=== PATIENT | male | born 1935 | race Caucasian/White ===

== ENCOUNTER 2024-01-30 03:35 | Inpatient (IN) | payer OTHER, MEDICARE, SELFPAY ==
[2024-01-30] VITALS (58 sets, daily range): BP systolic 76–168; BP diastolic 31–105; PULSE 43–101; RESP 12–29; TEMP 32.4–37.1; O2SAT 84–100; BMI 37.9; BMI 41.9
--- NOTE | 2024-01-30 03:39 | ECG_ITS ---
APPROVED REPORT Exam: Resting ECG HR:46 bpm ECG Measurements Heart Rate 46 AXES TX 313 P 62 QRSd 134 QRS 54 QT 482 T 3 QTc 442 Conclusion SINUS BRADYCARDIA WITH FIRST DEGREE AV BLOCK INTRAVENTRICULAR CONDUCTION DELAY [130+ ms QRS DURATION] POSSIBLE ANTERIOR MYOCARDIAL INFARCTION , OF INDETERMINATE AGE [30 ms Q WAVE IN V3/V4, OR R < 0.2 mV IN V4] Electronically signed by : BURAK CAR, 01/30/2024 15:29:38
--- NOTE | 2024-01-30 03:48 | ED_ITS ---
Discharge Plan Disposition Patient Disposition: Admitted Prescriptions Prescriptions: No Action losartan 50 mg tablet 50 mg PO DAILY furosemide 40 mg tablet 40 mg PO DAILY silver sulfadiazine 1 % cream 1 applic TOPICAL DAILYP PRN (Reason: Skin Condition) ipratropium-albuterol 0.5 mg-3 mg(2.5 mg base)/3 mL solution for nebulization 3 ml INHALATION DAILYP PRN (Reason: Shortness Of Breath Or Wheezing) trazodone 50 mg tablet 50 mg PO HS allopurinol 100 mg tablet 100 mg PO DAILY citalopram 20 mg tablet 20 mg PO DAILY terazosin 2 mg capsule 2 mg PO HS hydrocortisone 1 % cream 1 applic topical DAILYP PRN (Reason: Skin Condition) omeprazole 20 mg capsule,delayed release(DR/EC) 20 mg PO DAILY levothyroxine 200 mcg tablet 200 mcg PO DAILY pravastatin 20 mg tablet 20 mg PO HS carbidopa-levodopa 25-100 mg tablet 1 tab PO TID pramipexole 1.5 mg tablet 1.5 mg PO HS Clinical Impressions Clinical Impression: Septic shock, CED (acute kidney injury), Hypothermia, Respiratory failure with hypoxia and hypercapnia, Heart failure Instructions Patient Instructions: DI for Altered Mental Status Discharge ED Provider: Hua Rondon General Adult HPI General Chief complaint: Shortness of Breath/Dyspnea Stated complaint: AMS Time Seen by Provider: 01/30/24 03:47 History of Present Illness HPI narrative: 88-year-old male with history of obesity, chronic kidney disease, hypertension, Parkinson's, dementia, custodial resident, DNR/DNI, presents with altered mental status. The son, his medical POA, reports that he was told by the custodial yesterday that the patient's kidneys are failing and that he has not been acting normally. He has been less interactive over the last couple of days per his report. The report that we got from the EMS folks are that he had a more sudden change approximately 2 hours prior to arrival. On arrival patient will moan to pain and loud verbal stimuli, is unable to provide any history. EMS reports that his Lasix was recently discontinued, they are unable to provide any other significant history. Related Data Home Medications Medication Instructions Recorded Confirmed allopurinol 100 mg tablet 100 mg PO DAILY 01/30/24 01/30/24 carbidopa 25 mg-levodopa 100 mg 1 tab PO TID 01/30/24 01/30/24 tablet citalopram 20 mg tablet 20 mg PO DAILY 01/30/24 01/30/24 furosemide 40 mg tablet 40 mg PO DAILY 01/30/24 01/30/24 hydrocortisone 1 % topical cream 1 applic topical DAILYP PRN Skin 01/30/24 01/30/24 Condition ipratropium 0.5 mg-albuterol 3 mg 3 ml inhalation DAILYP PRN 01/30/24 01/30/24 (2.5 mg base)/3 mL nebulization Shortness Of Breath Or Wheezing soln levothyroxine 200 mcg tablet 200 mcg PO DAILY 01/30/24 01/30/24 losartan 50 mg tablet 50 mg PO DAILY 01/30/24 01/30/24 omeprazole 20 mg capsule,delayed 20 mg PO DAILY 01/30/24 01/30/24 release pramipexole 1.5 mg tablet 1.5 mg PO HS 01/30/24 01/30/24 pravastatin 20 mg tablet 20 mg PO HS 01/30/24 01/30/24 silver sulfadiazine 1 % topical 1 applic topical DAILYP PRN Skin 01/30/24 01/30/24 cream Condition terazosin 2 mg capsule 2 mg PO HS 01/30/24 01/30/24 trazodone 50 mg tablet 50 mg PO HS 01/30/24 01/30/24 Allergies Allergy/AdvReac Type Severity Reaction Status Date / Time No Known Allergies Allergy Verified 09/02/21 14:14 [facility] Disclaimer: The information contained in this section may have been updated after the patient was seen, as this information can be updated by other users. Medical History (Updated 01/30/24 @ 05:46 by Hua Rondon MD) Closed fracture of neck of right femur Social History Smoking Status: Former smoker alcohol intake: never substance use type: denies use current occupational status: retired Travel in the last 8 weeks: None household members: family housing: house ROS Obtained: Yes unobtainable due to mental status Physical Exam General General appearance: obtunded Head Head exam: atraumatic and normocephalic Eye Eye exam: Present normal appearance and PERRL ENT ENT exam: Present normal oropharynx and normal external ear exam Neck Neck exam: Present normal inspection and full ROM Chest Chest inspection: Present normal inspection and symmetric chest wall rise Respiratory Respiratory exam: Present wheezes and other (Bradypnea) Cardiovascular Cardiovascular exam: Present normal rhythm and bradycardia Abdominal Exam Abdominal exam: Present soft and distention; Absent tenderness or guarding Comment: Small scattered bruising noted to the abdomen Extremities Exam Extremities exam: Present edema (Significant bilateral lower extremity pitting edema) Back Exam Back exam: Present normal inspection Neurological Exam Neurological exam: Present other (Withdraws to pain in all extremities, GCS 9 on arrival, no facial droop noted) Skin Skin exam: Present warm, dry and pallor Lymphatic Lymphatic Findings: no adenopathy Medical Decision Making Medical Records Medical records reviewed: Yes I reviewed the patient's medical records. Pierce Inquiry Pt receiving controlled substance: No Pierce was queried for this patient: No Vital Signs: 01/30/24 03:35 01/30/24 03:38 01/30/24 03:49 Temperature 90.4 F L Temperature Source Rectal Pulse Rate 49 L 74 Pulse Rate [Left] 48 L Respiratory Rate 12 16 18 Blood Pressure 131/97 H 82/31 L Blood Pressure [Right Arm] 83/36 L Blood Pressure Mean 102 43 Blood Pressure Mean [Right Arm] 51 Blood Pressure Source [Right Arm] Automatic Cuff Blood Pressure Position [Right Arm] Supine 02 Sat by Pulse Oximetry 90 L 84 L 86 L Oxygen Delivery Method Nasal Cannula Nasal Cannula BiPAP Oxygen Flow Rate (LPM) 2 01/30/24 03:50 01/30/24 03:54 01/30/24 03:55 Temperature Temperature Source Pulse Rate 50 L 43 L 43 L Pulse Rate [Left] Respiratory Rate 18 19 16 Blood Pressure 83/36 L 84/39 L 79/39 L Blood Pressure [Right Arm] Blood Pressure Mean 48 48 47 Blood Pressure Mean [Right Arm] Blood Pressure Source [Right Arm] Blood Pressure Position [Right Arm] 02 Sat by Pulse Oximetry 96 96 96 Oxygen Delivery Method BiPAP BiPAP BiPAP Oxygen Flow Rate (LPM) 01/30/24 04:00 01/30/24 04:13 01/30/24 04:14 Temperature Temperature Source Pulse Rate 45 L 44 L 45 L Pulse Rate [Left] Respiratory Rate 14 19 17 Blood Pressure 94/72 L 79/33 L 78/35 L Blood Pressure [Right Arm] Blood Pressure Mean 79 48 44 Blood Pressure Mean [Right Arm] Blood Pressure Source [Right Arm] Blood Pressure Position [Right Arm] 02 Sat by Pulse Oximetry 95 97 96 Oxygen Delivery Method BiPAP BiPAP BiPAP Oxygen Flow Rate (LPM) 01/30/24 04:20 01/30/24 04:30 01/30/24 04:35 Temperature Temperature Source Pulse Rate 43 L 45 L 44 L Pulse Rate [Left] Respiratory Rate 16 17 16 Blood Pressure 76/35 L 79/37 L 79/33 L Blood Pressure [Right Arm] Blood Pressure Mean 43 44 42 Blood Pressure Mean [Right Arm] Blood Pressure Source [Right Arm] Blood Pressure Position [Right Arm] 02 Sat by Pulse Oximetry 96 95 96 Oxygen Delivery Method BiPAP BiPAP BiPAP Oxygen Flow Rate (LPM) 01/30/24 04:40 01/30/24 04:51 01/30/24 05:01 Temperature Temperature Source Pulse Rate 48 L 51 L 51 L Pulse Rate [Left] Respiratory Rate 18 16 16 Blood Pressure 99/50 L 103/39 L 103/42 L Blood Pressure [Right Arm] Blood Pressure Mean 61 60 62 Blood Pressure Mean [Right Arm] Blood Pressure Source [Right Arm] Blood Pressure Position [Right Arm] 02 Sat by Pulse Oximetry 98 98 96 Oxygen Delivery Method BiPAP BiPAP BiPAP Oxygen Flow Rate (LPM) 01/30/24 05:10 Temperature Temperature Source Pulse Rate 53 L Pulse Rate [Left] Respiratory Rate 18 Blood Pressure 105/47 L Blood Pressure [Right Arm] Blood Pressure Mean 58 Blood Pressure Mean [Right Arm] Blood Pressure Source [Right Arm] Blood Pressure Position [Right Arm] 02 Sat by Pulse Oximetry 97 Oxygen Delivery Method BiPAP Oxygen Flow Rate (LPM) Lab Data Lab results reviewed: Yes I reviewed the patient's lab results. Lab Results 01/30/24 03:45: WBC 6.7, RBC 2.69 L, Hgb 8.6 L, Hct 30.0 L, MCV 111.3 H, MCH 31.9 H, MCHC 28.7 L, RDW 16.8, Plt Count 126 L, MPV 10.6 H, Neut % (Auto) 84.5 H , Lymph % (Auto) 8.9 L, [place] % (Auto) 3.5, Eos % (Auto) 2.6, Baso % (Auto) 0.5, Neut # (Auto) 5.7, Lymph # (Auto) 0.6 L, [place] # (Auto) 0.2, Eos # (Auto) 0.2, Baso # (Auto) 0.0, Sodium 142, Potassium 5.3 H, Chloride 104, Carbon Dioxide 33 H, Anion Gap 10.3, BUN 100 H, Creatinine 3.00 H, Estimated Creat Clear 28, E stimated GFR 20 L, Est GFR ( Amer) 24 L, Glucose 128 H, Lactate 1.6, Calcium 8.5, Total Bilirubin 0.3, AST 55, ALT 12, Alkaline Phosphatase 161 H, Ammonia 10, Troponin I 0.02, NT-Pro-B Natriuret Pep 2860 H, Total Protein 6.3, Albumin 3.6, Globulin 2.7, Albumin/Globulin Ratio 1.3, TSH 3.07, Thyroxine (T4) 7.8, Salicylates < 1.0 L, Acetaminophen < 10 L, Acetone Level None detected 01/30/24 03:50: Urine Color Yellow, Urine Appearance Clear, Urine pH 5.5, Ur Specific [place] 1.020, Urine Protein Negative, Urine Glucose (UA) Negative, Urine Ketones Negative, Urine Blood Negative, Urine Nitrate Negative, Urine Bilirubin Negative, Urine Urobilinogen 0.2, Ur Leukocyte Esterase Negative, Urine WBC Occasional, Urine Bacteria Trace 01/30/24 03:51: VBG pH 7.20 L, VBG pCO2 74.1 H, VBG pO2 64.1 H, VBG HCO3 28.2, V BG Total CO2 30.5 H, VBG O2 Saturation 87.7 H, VBG Base Excess 0.1, VBG Lactic Acid 2.2 H 01/30/24 04:02: Urine Opiates Screen Negative, Urine Methadone Screen Negative, Ur Barbituates Screen Negative, Ur Phencyclidine Scrn Negative, Ur Amphetamines Screen Negative, U Benzodiazepines Scrn Negative, Urine Cocaine Screen Negative, U Marijuana (THC) Screen Negative 01/30/24 03:45 01/30/24 03:45 Orders (Tests/Meds): ED MEDICATIONS Generic Name Dose Route Start Last Admin Trade Name Freq PRN Reason Stop Dose Admin Norepinephrine/Dextrose 8 mg in 250 mls @ 15 mls/hr 01/30/24 04:22 01/30/24 05:21 Norepinephrine 8mg/250ml-D5w Premix IV 02/29/24 04:21 10 mcg/min .[id number] JLUIS 18.75 mls/hr Titration Protocol 8 MCG/MIN Vancomycin HCl 2,000 mg/ 250 mls @ 125 mls/hr 01/30/24 05:00 01/30/24 05:02 Sodium Chloride IV 01/30/24 06:59 125 mls/hr ONCE ONE Administration Lactated Ringer's 1,000 mls @ 999 mls/hr 01/30/24 05:07 01/30/24 05:21 Lactated Ringer's 1000 Ml Bag IV 01/30/24 06:07 999 mls/hr .Q1H1M ONE Administration Miscellaneous 1 each 01/30/24 04:30 01/30/24 05:23 Vancomycin Consult Request NOTAPPLIC 02/29/24 04:29 1 each CONSULT PHARMACY JLUIS Administration Discontinued Medications Generic Name Dose Route Start Last Admin Trade Name Freq PRN Reason Stop Dose Admin Hydrocortisone Sodium Succinate 100 mg 01/30/24 04:15 01/30/24 04:22 Hydrocortisone Sod Succinate 100mg Vial IV 01/30/24 04:16 100 mg ONCE ONE Administration Lactated Ringer's 1,000 mls @ 999 mls/hr 01/30/24 04:15 01/30/24 04:19 Lactated Ringer's 1000 Ml Bag IV 01/30/24 05:15 999 mls/hr .Q1H1M JLUIS Administration Piperacillin Sod/Tazobactam 100 mls @ 200 mls/hr 01/30/24 04:20 01/30/24 04:29 Sod 4.5 gm/ Sodium Chloride IV 01/30/24 04:49 200 mls/hr ONCE ONE Administration Levothyroxine Sodium 400 mcg 01/30/24 04:16 01/30/24 05:01 Levothyroxine Sodium 100 Mcg Vial IV 01/30/24 04:17 Not Given ONCE ONE Levothyroxine Sodium 200 mcg 01/30/24 04:57 01/30/24 05:08 Levothyroxine Sodium 100 Mcg Vial IV 01/30/24 04:58 200 mcg ONCE ONE Administration ORDERS Category Date Time Status CT head/brain wo con Stat Cat Scan 01/30/24 03:49 Ordered CXR --portable [XR chest portable] Stat Exams 01/30/24 03:49 Taken Acetaminophen Stat Lab 01/30/24 03:45 Completed Acetone, Serum (Rapid) Stat Lab 01/30/24 03:45 Completed Ammonia Stat Lab 01/30/24 03:45 Completed BNP [Brain Natriuretic Peptide] Stat Lab 01/30/24 03:45 Completed CBC w/Auto Diff [Complete Blood Count Auto Diff] Stat Lab 01/30/24 03:45 Completed CMP [Comprehensive Metabolic Panel] Stat Lab 01/30/24 03:45 Completed Cortisol Stat Lab 01/30/24 03:45 Received Lactic Acid Stat Lab 01/30/24 03:45 Completed Salicylate Stat Lab 01/30/24 03:45 Completed T4 (Thyroxine) Stat Lab 01/30/24 03:45 Completed TSH [Thyroid Stimulating Hormone] Stat Lab 01/30/24 03:45 Completed Troponin I Q3H Lab 01/30/24 03:45 Completed Troponin I Q3H Lab 01/30/24 07:00 Ordered UA [Urinalysis and Microscopic] Stat Lab 01/30/24 03:50 Completed UDS [Drug Screen,Urine] Stat Lab 01/30/24 04:02 Completed Blood Culture Stat Micro 01/30/24 03:45 Received VBG [Venous Blood Gas] Stat RT 01/30/24 03:51 Completed ECG Data Tracing #1: I reviewed this ECG and interpreted as documented below: Sinus rhythm with first-degree AV block, bradycardia with rate of 46, first-degree AV block is similar in comparison to prior EKGs. bradycardia appears new ECG initial impression date: 01/30/24 ECG initial impression time: 03:40 Medical Decision Narrative: 88-year-old male with history of Parkinson's, dementia, hypertension, hypothyroidism, heart failure, custodial resident, DNR/DNI, presents with altered mental status and multiple vital sign abnormalities. History was obtained interactive discussion with EMS, patient's son, chart review. On arrival, patient is hypothermic with temp 90 rectally, bradycardic with rates consistently in the 40s, hypotensive with systolics in the 70s, altered mental status with GCS of 9, no unilateral deficits noted, withdrawing in all extremities. Full physical exam performed and significant for marked pitting edema in the lower extremities, mild bruising to the abdomen. I confirmed over the phone with the patient's son, the medical POA, who affirms the patient is DNR/DNI. Differential includes but is not limited to myxedema coma, sepsis, intracranial pathology, multiorgan failure Patient was given 2 L IV fluid bolus immediately for hypotension, he transiently responded but ultimately required initiation of Levophed drip for hypotension. Patient was also initiated on IV levothyroxine and IV hydrocortisone for concern for myxedema coma. Patient initiated on IV vancomycin and IV Zosyn for broad- spectrum antibiotic coverage of presumed sepsis. Workup initiated including CBC CMP UA blood cultures UDS Tylenol salicylates VBG BNP troponin chest x-ray EKG CT head Noncon. Patient placed on the bear hugger for rewarming. We considered intubation, but did not given patient is DNR/DNI. On re-evaluation, patient remains altered, though somewhat improved with improved perfusion. Laboratory workup independently interpreted by me and significant for respiratory acidosis with pH 7.2, pCO2 74, CED with creatinine 3, markedly elevated BUN at 100, up from most recent of 1.4. Mildly elevated lactate. Anemia with hemoglobin 8.6, mildly down from prior, thrombocytopenia, mild hypokalemia with potassium 5.3, negative Tylenol and salicylates. Thyroid studies returned within normal limits Imaging independently interpreted by me and significant for trace bilateral pleural effusions on chest x-ray. CT head shows no acute intracranial bleeding. See radiology read for full review of final results. EKG independently interpreted by me and significant for sinus bradycardia with first-degree AV block as documented above. Given patient history, exam and workup, patient's presentation most likely represents sepsis shock and multiorgan system failure. This includes hypoxic and hypercarbic respiratory failure, acute kidney injury, altered mental status, heart failure. An interactive discussion was had with the hospitalist on-call who accepted the patient for admission. Procedures Risk/Benefits of Procedure(s) Were Explained: Yes Critical Care Critical Care Time Critical Care Time: Yes Attestation: On 01/30/24, the high probability of a clinically significant, sudden or life threatening deterioration of the following system(s) respiratory, cardiac required my full and direct attention, intervention and personal management. The time I documented below is in addition to time spent performing reported procedures but includes the following listed in this critical care notation. Total Time Total Critical Care Time: 75
--- NOTE | 2024-01-30 03:49 | CT_ITS ---
PROCEDURE INFORMATION: Exam: CT Head Without Contrast Exam date and time: 01/30/2024 5:37 AM Age: 88 years old Clinical indication: Altered mental status/memory loss; Confusion or disorientation; Additional info: AMS TECHNIQUE: Imaging protocol: Computed tomography of the head without contrast. Radiation optimization: All CT scans at this facility use at least one of these dose optimization techniques: automated exposure control; mA and/or kV adjustment per patient size (includes targeted exams where dose is matched to clinical indication); or iterative reconstruction. COMPARISON: CT HEAD/BRAIN WO CON 10/10/2023 4:37 PM FINDINGS: Brain: There is diffuse prominence of the cerebral sulci, cisterns, and ventricles consistent with atrophy. No intra or extra-axial fluid collections are noted. No mass or mass effect is seen. Periventricular white matter hypoattenuation is seen consistent with chronic small vessel disease. Cerebral ventricles: No ventriculomegaly. Paranasal sinuses: Visualized sinuses are unremarkable. No fluid levels. Mastoid air cells: Visualized mastoid air cells are well aerated. Bones/joints: Unremarkable. No acute fracture. Soft tissues: Unremarkable. IMPRESSION: No acute process noted.
--- NOTE | 2024-01-30 03:49 | XR_ITS ---
PROCEDURE INFORMATION: Exam: XR Chest Exam date and time: 01/30/2024 4:18 AM Age: 88 years old Clinical indication: Apnea and shortness of breath; Additional info: AMS, apnea TECHNIQUE: Imaging protocol: Radiologic exam of the chest. Views: 1 view. COMPARISON: CT ANGIO CHEST PE PROTOCOL 05/30/2023 3:44 PM FINDINGS: Lungs: Left basilar atelectasis versus airspace disease. Pleural spaces: Probable left-sided pleural effusion. Heart/Mediastinum: Cardiomegaly. Bones/joints: Unremarkable. IMPRESSION: Cardiomegaly. Left basilar atelectasis versus airspace disease. Probable left-sided pleural effusion.
[2024-01-30 04:01] LABS: VBG Base Excess 0.1 mmol/L (-2.4-2.3); VBG HCO3 28.2 mmol/L (23-30); VBG Oxygen Saturation 87.7 % (50-70); VBG PCO2 74.1 mmol/L (35-51); VBG PO2 64.1 mmol/L (28-40); VBG Total CO2 30.5 mmol/L (23-27)
[2024-01-30 04:04] LABS: Lactate Venous 2.2 mmol/L (0.4-2.0)
--- NOTE | 2024-01-30 04:05 | PC.NURSE ---
Placed era hugger on patient.
[2024-01-30 04:06] LABS: Acetone, Serum (Rapid) None Detected (None Detect)
[2024-01-30 04:09] LABS: Chloride 104 mmol/L (98-107); Potassium 5.3 mmoL/L (3.5-5.1); Sodium 142 mmol/L (136-145)
[2024-01-30 04:10] LABS: Basophils % 0.5 % (0.1-2.0); Eosinophils # 0.2 K/mm3 (0.0-0.4); Eosinophils % 2.6 % (0.1-12.0); Hemoglobin 8.6 g/dL (14.1-18.0); Lymphocytes # 0.6 K/mm3 (0.7-4.5); Lymphocytes % 8.9 % (10-50); Mean Corpuscular HGB Conc 28.7 g/dL (31.8-35.4); Mean Corpuscular Hemoglobin 31.9 pg (27.0-31.2); Mean Corpuscular Volume 111.3 fl (80-94); Mean Platelet Volume 10.6 fl (7.4-10.4); Monocytes # 0.2 K/mm3 (0.1-1.0); Monocytes % 3.5 % (1.7-9.3); Neutrophils # 5.7 K/mm3 (1.8-7.8); Neutrophils % 84.5 % (37.0-80.0); Platelet Count 126 K/mm3 (142-424); Red Blood Count 2.69 M/mm3 (4.60-6.20); Red Cell Distribution Width 16.8 % (11.5-17.5); White Blood Count 6.7 K/mm3 (4.8-10.8)
--- NOTE | 2024-01-30 04:10 | PC.NURSE ---
[id number]. Pt is srikanth (HR 48) Hypotensive (83/36) Hypothermic (90.4 rectal) , Scattered bruising on abdomen and upper extremities, responds only to painful stimuli.
[2024-01-30 04:11] LABS: Alanine Aminotransferase 12 U/L (12-78); Alkaline Phosphatase 161 U/L (38-126); Ammonia 10 umol/L (9-30); Anion Gap 10.3 mEq/L (5-15); Aspartate Amino Transferase 55 U/L (17-59); Bilirubin,Total 0.3 mg/dl (0.2-1.3); Carbon Dioxide 33 mmol/L (22.0-30.0); Creatinine Clearance Estimated 28 mL/min (50-200); Estimated Glomerular Filt Rate 20 ml/min (>60); GFR (African American) 24 ML/MIN (>60); Lactic Acid 1.6 mmol/L (0.7-2.1)
[2024-01-30 04:11] LABS: Microscopic, Urine URINE MICROSCOPIC (MICROSCOPIC)
[2024-01-30 04:12] LABS: Albumin Level 3.6 g/dl (3.5-5.0); Albumin/Globulin Ratio 1.3 (1.1-1.8); Calcium 8.5 mg/dl (8.4-10.2); Globulin 2.7 g/dL (1.3-3.2); Glucose 128 mg/dl (74-100); Total Protein,Serum 6.3 g/dl (6.3-8.2)
[2024-01-30 04:15] LABS: Acetaminophen < 10 ug/ml (10-30); Salicylate < 1.0 mg/dL (2.0-20.0)
[2024-01-30 04:16] LABS: Blood Urea Nitrogen 100 mg/dl (9-20)
[2024-01-30] MEDS: LACTATED RINGERS 1000ML 1,000 ML 999 ML IV ×2 (04:19→05:21)
[2024-01-30 04:22] LABS: NT Pro Brain Natriuretic Pep. 2860 pg/mL (0-450)
[2024-01-30] MEDS: HYDROCORTISONE SOD SUCCINATE 100MG VIAL 100 MG IV (04:22)
[2024-01-30 04:23] LABS: Appearance,Urine CLEAR (Clear); Bilirubin,Urine Negative (Negative); Blood, Urine Negative (Negative); Color,Urine YELLOW (Yellow); Glucose,Urine (UA) Negative (Negative); Ketones,Urine Negative (Negative); Leukocyte Esterase,Urine Negative (Negative); Nitrate,Urine Negative (Negative); PH,Urine 5.5 (5.0-8.5); Protein,Urine Negative (Negative); Urobilinogen,Urine 0.2 EU/dl (0.2)
[2024-01-30 04:25] LABS: Troponin I 0.02 ng/ml (0.00-0.034)
--- NOTE | 2024-01-30 04:26 | PC.NURSE ---
CONTACTED EDVIN BECKMAND FOR QUESTIONS RE: IV LEVOTHYROXINE
[2024-01-30 04:29] LABS: T4 (Thyroxine) 7.8 ug/dl (5.53-11.0)
[2024-01-30] MEDS: PIPERACILLIN/TAZO 4.5 GM in 0.9 % SODIUM CHLORIDE 100 ML IV (04:29)
[2024-01-30] MEDS: NOREPINEPHRINE BITARTRATE/D5W 8 MG/250 ML PLAST..BAG 15 MG IV ×2 (04:30→16:23)
[2024-01-30 04:34] LABS: Benzodiazepines Screen,Urine Negative ng/ml (<200)
[2024-01-30 04:35] LABS: Amphetamine/Metha Screen,Urine Negative ng/ml (<1000)
[2024-01-30 04:36] LABS: Barbiturates Screen,Urine Negative ng/ml (<200); Cannabinoid Screen,Urine Negative ng/ml (<50)
[2024-01-30 04:37] LABS: Cocaine Screen,Urine Negative ng/ml (<300); Methadone Screen,Urine Negative ng/ml (<300)
[2024-01-30 04:38] LABS: Opiate Screen,Urine Negative ng/ml (<300)
[2024-01-30 04:39] LABS: Phencyclidine Screen,Urine Negative ng/ml (<25)
[2024-01-30 04:43] LABS: Thyroid Stimulating Hormone 3.07 uIU/mL (0.465-4.68)
--- NOTE | 2024-01-30 04:55 | PC.NURSE ---
Pt is admitted, will be boarding in ED
[2024-01-30 05:00] LABS: Bacteria,Urine Trace /lpf; WBC,Urine Occasional #/hpf (0-3)
[2024-01-30] MEDS: VANCOMYCIN HCL 2,000 MG in 0.9 % SODIUM CHLORIDE 250 ML 125 MG IV (05:02)
[2024-01-30] MEDS: LEVOTHYROXINE SODIUM 100 MCG VIAL 200 MCG IV (05:08)
[2024-01-30] MEDS: VANCOMYCIN CONSULT REQUEST 1 EACH NOTAPPLIC (05:23)
--- NOTE | 2024-01-30 05:23 | PC.NURSE ---
Family at bedside
--- NOTE | 2024-01-30 06:02 | PC.NURSE ---
Pt taken to CT, placed in hospital bed after scan, back in room , family at bedside no needs at this time.
--- NOTE | 2024-01-30 06:31 | PC.NURSE ---
Family going home at this time
--- NOTE | 2024-01-30 06:42 | PC.NURSE ---
Admissions notified for admission
--- NOTE | 2024-01-30 07:26 | P.HP_ITS ---
History of Present Illness *Admission Date: 01/30/24 *Reason for visit:: weakness, altered mental status *History of present illness: Mr. Haider is an 88-year-old male with history of obesity, CKD, hypertension, Parkinson's. He is a intermediate resident who presented with altered mental status. There was concern for worsening kidney dysfunction at his intermediate and the patient was not acting normally. He was brought to the ER via EMS for further evaluation. Patient has reportedly been less active over the past couple days. Unable to obtain history from patient. Obtained history per this note from chart and ER documentation. Son was at bedside on presentation unable to give history of patient's decline over the past few days. Reportedly had a more acute change a few hours prior to arriving at the ER. Was moaning to loud verbal stimuli and would respond with eye-opening to physical stimuli. Frankly altered however with GCS of 7. Initial workup in the ER showed patient was hypothermic, hypotensive, and renal failure with BUN of 100 and creatinine of 3. Had hypercarbia. Given patient's CODE STATUS of DNR/DNI, was initiated on BiPAP, broad-spectrum antibiotics, Levophed, and Dewayne hugger for slow rewarming. On my evaluation, patient has some improved spontaneous movement. Temperature is improving to 92. Levophed at 8 with MAP greater than 65. Pulling volumes of 4-500 on BiPAP. [facility] Disclaimer: The information contained in this section may have been updated after the patient was seen, as this information can be updated by other users. Medical History (Updated 01/30/24 @ 17:34 by Juli Alcantara RN) Hypothyroid Depression Anxiety COPD (chronic obstructive pulmonary disease) GERD (gastroesophageal reflux disease) Parkinsons disease Dementia Anemia CKD (chronic kidney disease) HTN (hypertension) CHF (congestive heart failure) Closed fracture of neck of right femur Family History (Updated 01/30/24 @ 17:34 by Juli Alcantara RN) Other Cancer Social History (Updated 01/30/24 @ 17:34 by Juli Alcantara RN) Smoking Status: Former smoker alcohol intake: never substance use type: denies use current occupational status: retired Travel in the last 8 weeks: None household members: family and other housing: house lives independently: No marital status: intermediate: Yes Review of Systems Review of Systems Review of systems:: unable to obtain Meds Home Medications and Allergies Home Medications Medication Instructions Recorded Confirmed Type acetaminophen 325 mg tablet 325 mg PO QID 01/30/24 01/30/24 History allopurinol 100 mg tablet 100 mg PO DAILY 01/30/24 01/30/24 History aspirin 81 mg tablet,delayed 81 mg PO DAILY 01/30/24 01/30/24 History release calcium carbonate 250 mg-vitamin 1 tab PO BID 01/30/24 01/30/24 History D3 3.125 mcg (125 unit) tablet (Oyster Shell Calcium-Vitamin D3) carbidopa 25 mg-levodopa 100 mg 1 tab PO TID 01/30/24 01/30/24 History tablet cholecalciferol (vitamin D3) 25 25 mcg PO DAILY 01/30/24 01/30/24 History mcg (1,000 unit) capsule citalopram 20 mg tablet 20 mg PO DAILY 01/30/24 01/30/24 History furosemide 40 mg tablet 40 mg PO DAILY 01/30/24 01/30/24 History hydrocortisone 1 % topical cream 1 applic topical DAILYP PRN Skin 01/30/24 01/30/24 History Condition ipratropium 0.5 mg-albuterol 3 mg 3 ml inhalation DAILYP PRN 01/30/24 01/30/24 History (2.5 mg base)/3 mL nebulization Shortness Of Breath Or Wheezing soln levothyroxine 200 mcg tablet 200 mcg PO DAILY 01/30/24 01/30/24 History levothyroxine 25 mcg tablet 25 mcg PO DAILY 01/30/24 01/30/24 History losartan 50 mg tablet 50 mg PO BID 01/30/24 01/30/24 History multivitamin-ferrous 1 tab PO DAILY 01/30/24 01/30/24 History fumarate-folic acid 18 mg-400 mcg tablet (Multi-Day with Iron) omega 3-dha 200 mg-epa 300 mg-fish 2 cap PO DAILY 01/30/24 01/30/24 History oil 1,000 mg capsule omeprazole 20 mg capsule,delayed 20 mg PO DAILY 01/30/24 01/30/24 History release polyethylene glycol 3350 17 gram 17 g PO DAILY 01/30/24 01/30/24 History oral powder packet (Miralax) polysaccharide iron complex 150 mg 150 mg PO DAILY 01/30/24 01/30/24 History iron capsule (Ferrex) pramipexole 1.5 mg tablet 1.5 mg PO TID 01/30/24 01/30/24 History pravastatin 20 mg tablet 20 mg PO TUTH 01/30/24 01/30/24 History silver sulfadiazine 1 % topical 1 applic topical DAILYP PRN Skin 01/30/24 01/30/24 History cream Condition terazosin 2 mg capsule 2 mg PO HS 01/30/24 01/30/24 History trazodone 50 mg tablet 50 mg PO HS 01/30/24 01/30/24 History New Prescriptions to Start Prescriptions: Allergies Allergy/AdvReac Type Severity Reaction Status Date / Time No Known Allergies Allergy Verified 09/02/21 14:14 Exam Data for Last 24 hours Vital signs and Labs for Last 24 Hours: Temp Pulse Resp BP Pulse Ox O2 Del Method O2 Flow Rate 90.4 F L 57 L 16 126/39 L 96 BiPAP 2 01/30/24 06:10 01/30/24 06:50 01/30/24 06:50 01/30/24 06:50 01/30/24 06:50 01/30/24 06:50 01/30/24 03:35 FiO2 45 01/30/24 03:59 Laboratory Results - last 24 hr 01/30/24 03:45: WBC 6.7, RBC 2.69 L, Hgb 8.6 L, Hct 30.0 L, MCV 111.3 H, MCH 31.9 H, MCHC 28.7 L, RDW 16.8, Plt Count 126 L, MPV 10.6 H, Neut % (Auto) 84.5 H , Lymph % (Auto) 8.9 L, [place] % (Auto) 3.5, Eos % (Auto) 2.6, Baso % (Auto) 0.5, Neut # (Auto) 5.7, Lymph # (Auto) 0.6 L, [place] # (Auto) 0.2, Eos # (Auto) 0.2, Baso # (Auto) 0.0, Sodium 142, Potassium 5.3 H, Chloride 104, Carbon Dioxide 33 H, Anion Gap 10.3, BUN 100 H, Creatinine 3.00 H, Estimated Creat Clear 28, Estimated GFR 20 L, Est GFR ( Amer) 24 L, Glucose 128 H, Lactate 1.6, Maurice cium 8.5, Total Bilirubin 0.3, AST 55, ALT 12, Alkaline Phosphatase 161 H, Ammonia 10, Troponin I 0.02, NT-Pro-B Natriuret Pep 2860 H, Total Protein 6.3, Albumin 3.6, Globulin 2.7, Albumin/Globulin Ratio 1.3, TSH 3.07, Thyroxine (T4) 7.8, Salicylates < 1.0 L, Acetaminophen < 10 L, Acetone Level None detected 01/30/24 03:50: Urine Color Yellow, Urine Appearance Clear, Urine pH 5.5, Ur Specific [place] 1.020, Urine Protein Negative, Urine Glucose (UA) Negative, Urine Ketones Negative, Urine Blood Negative, Urine Nitrate Negative, Urine Bilirubin Negative, Urine Urobilinogen 0.2, Ur Leukocyte Esterase Negative, Urine WBC Occasional, Urine Bacteria Trace 01/30/24 03:51: VBG pH 7.20 L, VBG pCO2 74.1 H, VBG pO2 64.1 H, VBG HCO3 28.2, VBG Total CO2 30.5 H, VBG O2 Saturation 87.7 H, VBG Base Excess 0.1, VBG Lactic Acid 2.2 H 01/30/24 04:02: Urine Opiates Screen Negative, Urine Methadone Screen Negative, Ur Barbituates Screen Negative, Ur Phencyclidine Scrn Negative, Ur Amphetamines Screen Negative, U Benzodiazepines Scrn Negative, Urine Cocaine Screen Negative, U Marijuana (THC) Screen Negative I & O for Last 24 hours: Intake & Output 01/27/24 01/28/24 01/29/24 01/30/24 23:59 23:59 23:59 23:59 Intake Total .. Balance Weight 116.573 kg Constitutional Constitutional: moderate distress, obese, chronically ill appearing and somnolent *Routine HEENT Exam Head: Present normocephalic and atraumatic Eye: Present EOMI and PERRL ENT: Present mucous membranes moist *Routine Neck Exam Neck: Present supple; Absent JVD Routine Chest/Breast/Axilla Exam Chest wall: Absent tenderness *Routine Respiratory Exam Respiratory: Present accessory muscle use, respiratory distress and diminished air movement; Absent rhonchi, wheezes or crackles *Routine Cardiovascular Exam Cardiovascular: Present RRR, Normal S1 and Normal S2; Absent murmur *Routine Abdominal Exam Abdominal: Present soft, normoactive bowel sounds and distended; Absent tenderness *Routine Rectal Exam Rectal:: deferred *Routine Genitalia Exam Genitalia:: normal male *Routine Extremities Exam Extremities: Present edema (1+ of bilateral extremity); Absent cyanosis or clubbing Comments: Healing wounds bilateral lower extremities on shins. *Routine Skin Exam Skin: Present wounds; Absent cyanosis or erythema *Routine Neurological Exam Neurological: Present altered mental status Comments: Spontaneous movement, tremor Assessment and Plan *Assessment and plan (1) Septic shock: Status: Acute Category: Medical Code(s): A41.9 - Sepsis, unspecified organism; R65.21 - Severe sepsis with septic shock (2) Hypothermia: Status: Acute Category: Medical Code(s): T68.XXXA - Hypothermia, initial encounter (3) Respiratory failure with hypoxia and hypercapnia: Status: Acute Category: Medical Code(s): J96.91 - Respiratory failure, unspecified with hypoxia; J96.92 - Respiratory failure, unspecified with hypercapnia (4) Class 2 obesity: Status: Acute Category: Medical Code(s): E66.9 - Obesity, unspecified (5) CED (acute kidney injury): Status: Acute Category: Medical Code(s): N17.9 - Acute kidney failure, unspecified (6) Parkinsons disease: Status: Chronic Category: Medical Code(s): G20 - Parkinson's disease (7) Heart failure: Status: Acute Category: Medical Code(s): I50.9 - Heart failure, unspecified (8) Hypothyroid: Status: Chronic Category: Medical Code(s): E03.9 - Hypothyroidism, unspecified Plan 88-year-old male with history of Parkinson's who resides at a intermediate. Presented in septic shock with acute hypercapnic respiratory failure, hypothermia, no focal source for infection at this time but presumed infectious with UTI versus pneumonia versus abdominal infection. Presentation could also be likely to hypercapnia from confusion with his elevated BUN leading to hypothermia and hypotension. Discussed case with ER physician, request admission for ICU level care. Agree with admission. Medicine admitted for further management. Continue on BiPAP at this time, seeing slow improvement. Pulmonology consulted to assist with management of sepsis and BiPAP. Shock - Differential includes cardiogenic shock, septic shock, hypovolemic shock, obstructive shock. Will obtain echocardiogram to evaluate heart function. Lower extremity duplex to evaluate DVT. Continue BiPAP pending improvement in hypercapnia. Continue Levophed for MAP greater than 65. -Continue broad-spectrum antibiotics with vancomycin and cefepime. -White cell count normal at 6.7, repeat CBC, CMP, magnesium ordered for the morning. - Echocardiogram obtained, preliminary read shows preserved EF -Levophed weaned to 8 at this time for MAP greater than 65. Wean as tolerated -Body temperature has improved with Dewayne hugger, will remove when reaches normal temperature of 98 degrees. -Necessitates ICU level of care. -Discussed case with pulmonology, patient's presentation concerning for sepsis along with other multiple etiologies of shock. Low concern for adverse effect of his Parkinson's meds as he is not clinically in neuroleptic malignant syndrome. -Continue noninvasive ventilation currently with BiPAP at 12/, RR-22 and FiO2 0f 40%. Follow with repeat ABG -DuoNebs every 4 hours on a scheduled basis -Renally dose medications. MAP goal greater than 65. -CK obtained, 111, not elevated. Hypothyroid: TSH 1.4. Continue levothyroxine IV. Dose adjustment to 150 mcg d aily. Hypertension: Holding home regimen given hypotension Parkinson's: Continue carbidopa/levodopa and pramipexole 3 times a day per tube Pantoprazole 40 mg IV nightly for GERD Continue further goals of care discussion with family/son (POA) DNR/DNI NPO Lovenox 40 mg subcu daily
[2024-01-30 07:41] LABS: ABG Base Excess -1.6 mmol/L (-2.4-2.3); ABG Oxygen Saturation 93 % (90-100); ABG PO2 77.3 mmhg (80-100); ABG TCO2 29.4 mmhg (23-27)
[2024-01-30 07:47] LABS: Allen's Test Acceptable; Oxygen 45% %; Pressure Support 18/8; Source Left Radial
[2024-01-30 07:49] LABS: ABG PCO2 77.4 mmhg (35.0-45.0); ABG PH 7.16 mmol/L (7.35-7.45)
[2024-01-30 08:01] LABS: Troponin I 0.03 ng/ml (0.00-0.034)
[2024-01-30 08:02] LABS: Reflex Lactic Add Lactic Reflex
--- NOTE | 2024-01-30 08:02 | PC.NURSE ---
ROUNDED ON PT, TOLERATING BI-PAP. NO NEEDS AT THIS TIME
--- NOTE | 2024-01-30 08:17 | SW/DCPLANNER ---
Addendum entered by [facility] 02/05/24 12:40: The plan for this patient is to return to [facility] w/ Hospice Care today. Netta craft/ [facility], Mely craft/ [facility] Fidelia[facility] and patient's family are agreeable to this plan. Addendum entered by Ivette May 02/05/24 09:04: Updated patient information has been faxed to [facility]/ Kerry Mike. Addendum entered by Ivette May 02/01/24 15:38: Patient has now been admitted under Hospice inpatient. Addendum entered by [facility] 02/01/24 14:50: Per family/MD request patient information has been faxed to [facility]. Heide craft/ [facility] Cee is onsite to evaluate patient and speak w/ family. Original Note: This patient currently resides at [facility] on Memory Care Unit. I will continue to follow up luana/ Netta from [facility]. Discharge date is unknown at this time.
--- NOTE | 2024-01-30 08:31 | PC.NURSE ---
DR PATTERSON AT BEDSIDE
[2024-01-30 08:38] LABS: Lactic Acid Follow Up (RFLX 1) 1.1 mmol/L (0.7-2.1)
--- NOTE | 2024-01-30 08:40 | CA_ITS ---
APPROVED REPORT EXAM: Comprehensive 2D, Doppler, and color-flow Echocardiogram Pole Framer: Noni Ferreira RVT Ht: 5 ft 9 in Wt: 257lbs BSA: 2.30 BP: 126/39 mmHg Indications: HTN,SOA,SEPTIC SHOCK TDS-PT ON BIPAP AND FLAT ON HIS BACK BEST IMAGES POSSIBLE M-Mode Dimensions RVDd 4.73 cm (0.9-2.6) LA Diam 4.05 cm (1.9-4.0) LVDd 4.99 cm (3.5-5.7) LVDs 3.24 cm (3.5-5.7) IVSd 0.98 cm (0.6-1.1) PWd 0.67 cm (0.6-1.1) EF (Teich) 64.10% FS 35.10% EDV (Teich) 117.70 mL TAPSE 2.41 (<1.7) ESV (Teich) 42.20 mL LV Diastology E Decel Time 233 (160-240 msec) E/A Ratio 1.6 Aortic Valve AO Peak GR. 9.00 mmHg Mitral Valve MV E Max Jorge. 101.0 (40-130 cm/s) MV A Velocity 64.0 (40-130 cm/s) E/A Ratio 1.58 MV PHT 68.0 ms Pulmonary Valve PV Peak Velocity 76.0 (50-150 cm/s) Tricuspid Valve TR P. Velocity 305.00 cm/s RAP Estimate 10.00 mmHg RVSP 47.30 mmHg Left Ventricle The left ventricle is normal size. Left ventricular systolic function is mild to moderately decreased. There is increased LV wall thickness. The septum appears asynchronous. There is septal flattening, consistent with RV pressure/volume overload. Diastolic function is indeterminate. LVEF is 40%. Right Ventricle Right ventricle is moderately dilated. Right ventricle is moderately hypokinetic. Atria The left atrium size is normal. The right atrium size is normal. There is no Doppler evidence of interatrial shunt. Aortic Valve The aortic valve is mildly thickened. There is no aortic valvular stenosis. No aortic regurgitation is present. Mitral Valve The mitral valve is mildly thickened. No evidence of mitral valve stenosis. Trace mitral regurgitation. Tricuspid Valve The tricuspid valve leaflets are thin and pliable. Moderate tricuspid regurgitation. RVSP is 40 mmHg + RA pressure Pulmonic Valve The pulmonary valve is grossly normal in structure. Trace pulmonic regurgitation. Great Vessels The aortic root is normal in size. The ascending aorta is not well-visualized. The IVC is not well-visualized. Pericardium There is no pericardial effusion. A pleural effusion is present. Other Information Study Quality: Technically Difficult Conclusion Technically difficult study due to poor acoustic windows. Mild to moderate reduction in LV systolic function (LVEF 40%). Moderate RV dilation with moderate reduction in RV function. The septum appears asynchronous. There is septal flattening, consistent with RV pressure/volume overload. Moderate TR Elevated RVSP 40 mmHg + RA pressure. Electronically signed by : Jana Salas MD 02/04/2024 10:42:04
[2024-01-30] MEDS: ENOXAPARIN 40MG/0.4ML SYRINGE 40 MG SQ (09:05)
[2024-01-30] MEDS: CEFEPIME HCL 2 GM in 0.9 % SODIUM CHLORIDE 100 ML IV ×2 (09:06→20:42)
[2024-01-30 09:12] LABS: Coronavirus 19, PCR Not Detected (NotDetected); Influenza A, PCR Not Detected (NotDetected); Influenza B, PCR Not Detected (NotDetected)
--- NOTE | 2024-01-30 09:25 | P.CONPHA_ITS ---
Pharmacy Consult Date: 01/30/24 Time: 09:25 Referring provider: DR. PATTERSON Reason for Consult:: VANCOMYCIN DOSING Allergies Allergy/AdvReac Type Severity Reaction Status Date / Time No Known Allergies Allergy Verified 09/02/21 14:14 Home Medications Medication Instructions Recorded Confirmed Type allopurinol 100 mg tablet 100 mg PO DAILY 01/30/24 01/30/24 History carbidopa 25 mg-levodopa 100 mg 1 tab PO TID 01/30/24 01/30/24 History tablet citalopram 20 mg tablet 20 mg PO DAILY 01/30/24 01/30/24 History furosemide 40 mg tablet 40 mg PO DAILY 01/30/24 01/30/24 History hydrocortisone 1 % topical cream 1 applic topical DAILYP PRN Skin 01/30/24 01/30/24 History Condition ipratropium 0.5 mg-albuterol 3 mg 3 ml inhalation DAILYP PRN 01/30/24 01/30/24 History (2.5 mg base)/3 mL nebulization Shortness Of Breath Or Wheezing soln levothyroxine 200 mcg tablet 200 mcg PO DAILY 01/30/24 01/30/24 History losartan 50 mg tablet 50 mg PO DAILY 01/30/24 01/30/24 History omeprazole 20 mg capsule,delayed 20 mg PO DAILY 01/30/24 01/30/24 History release pramipexole 1.5 mg tablet 1.5 mg PO HS 01/30/24 01/30/24 History pravastatin 20 mg tablet 20 mg PO HS 01/30/24 01/30/24 History silver sulfadiazine 1 % topical 1 applic topical DAILYP PRN Skin 01/30/24 01/30/24 History cream Condition terazosin 2 mg capsule 2 mg PO HS 01/30/24 01/30/24 History trazodone 50 mg tablet 50 mg PO HS 01/30/24 01/30/24 History New Prescriptions to Start Prescriptions: Height: 1.75 m Weight: 116.573 kg Laboratory Results:: Laboratory Results - last 24 hr 01/30/24 03:45: WBC 6.7, RBC 2.69 L, Hgb 8.6 L, Hct 30.0 L, MCV 111.3 H, MCH 31.9 H, MCHC 28.7 L, RDW 16.8, Plt Count 126 L, MPV 10.6 H, Neut % (Auto) 84.5 H , Lymph % (Auto) 8.9 L, [place] % (Auto) 3.5, Eos % (Auto) 2.6, Baso % (Auto) 0.5, Neut # (Auto) 5.7, Lymph # (Auto) 0.6 L, [place] # (Auto) 0.2, Eos # (Auto) 0.2, Baso # (Auto) 0.0, Sodium 142, Potassium 5.3 H, Chloride 104, Carbon Dioxide 33 H, Anion Gap 10.3, BUN 100 H, Creatinine 3.00 H, Estimated Creat Clear 28, Estimated GFR 20 L, Est GFR ( Amer) 24 L, Glucose 128 H, Lactate 1.6, Calcium 8.5, Total Bilirubin 0.3, AST 55, ALT 12, Alkaline Phosphatase 161 H, Ammonia 10, Troponin I 0.02, NT-Pro-B Natriuret Pep 2860 H, Total Protein 6.3, Albumin 3.6, Globulin 2.7, Albumin/Globulin Ratio 1.3, TSH 3.07, Thyroxine (T4) 7.8, Salicylates < 1.0 L, Acetaminophen < 10 L, Acetone Level None detected 01/30/24 03:50: Urine Color Yellow, Urine Appearance Clear, Urine pH 5.5, Ur Specific [place] 1.020, Urine Protein Negative, Urine Glucose (UA) Negative, Urine Ketones Negative, Urine Blood Negative, Urine Nitrate Negative, Urine Bilirubin Negative, Urine Urobilinogen 0.2, Ur Leukocyte Esterase Negative, Urine WBC Occasional, Urine Bacteria Trace 01/30/24 03:51: VBG pH 7.20 L, VBG pCO2 74.1 H, VBG pO2 64.1 H, VBG HCO3 28.2, VBG Total CO2 30.5 H, VBG O2 Saturation 87.7 H, VBG Base Excess 0.1, VBG Lactic Acid 2.2 H 01/30/24 04:02: Urine Opiates Screen Negative, Urine Methadone Screen Negative, Ur Barbituates Screen Negative, Ur Phencyclidine Scrn Negative, Ur Amphetamines Screen Negative, U Benzodiazepines Scrn Negative, Urine Cocaine Screen Negative, U Marijuana (THC) Screen Negative 01/30/24 07:17: Specimen Source Left radial, O2 % 45%, ABG pH 7.16 L*, ABG pCO2 77.4 H, ABG pO2 77.3 L, ABG HCO3 27.0 H, ABG Total CO2 29.4 H, ABG O2 Saturation 93, ABG Base Excess -1.6, Elver Test Acceptable 01/30/24 07:30: Troponin I 0.03 01/30/24 08:17: Lactate 1.1 Medical History: Medical History (Updated 01/30/24 @ 05:46 by Hua Rondon MD) Closed fracture of neck of right femur Assessment and Plan Assessment and plan all Dx Assessment and Plan for all problems:: Pharmacokinetic dosing service Objective: Patient: Floor: Age: 88 yo Serum creatinine: 3 mg/dL Height: 69.0 Inches Weight (kg): 116.6 Assessment: IBW (kg): 70.70 Dosing wt(kg): 116.6 Estimated Creatinine clearance (ml/min): 16.7 CRCL method: Cockcroft and Gault using ibw(default). Drug selected: Vancomycin Loading dose (mg): 0 Vd (liters): 93.3 (factor used: 0.8 L/kg) Onofre (hr-1): 0.018 Half life (hrs): 38.51 Recommended dose: 2000 mg Interval: 48 hrs Infusion time (hrs): 2.0 Predicted peak (mcg/mL): 36.4 Predicted trough (mcg/mL): 15.90 Total body weight is being used for vancomycin dosing. Recommendations: Give Vancomycin 2000 mg q 48 hrs with an expected Cpeak of 36.4 mcg/ml and an expected Ctrough of 15.90 mcg/ml. NEXT DOSE IS SCHEDULED FOR 02/01/24 AT 0700. ----Vanco only - ignore for aminoglycosides----- CLvanco= 1.68 L/hr AUC 0-24 /MARGARITA Data: MARGARITA 0.5 mcg/mL: AUC/MARGARITA: 1190.5 MARGARITA 1.0 mcg/mL: AUC/MARGARITA: 595.2 --------- MARGARITA 1.5 mcg/mL: AUC/MARGARITA: 396.8 MARGARITA 2.0 mcg/mL: AUC/MARGARITA: 297.6 Renal dosing of other antibiotics (review renal dosing of other medications and list guidelines here): Thank you for the consult, will continue to follow. Signature:
--- NOTE | 2024-01-30 09:51 | PC.NURSE ---
NG tube placement attempted 3x by 2 different nurses. unsuccessful.
--- NOTE | 2024-01-30 10:13 | P.CONS_ITS ---
History of Present Illness History of present illness: Mr. Haider is a 88-year-old care home resident presented to the ER with worsening respiratory suspect external altered mentation and pulmonary was called for further evaluation and management. His other complaints include hypothyroidism on levothyroxine 225mcg daily Parkinson's on Levodopa-carbidopa and pramiprexole, hypertension and CHF. He is also nebulization therapies on as-needed basis. [facility] Disclaimer: The information contained in this section may have been updated after the patient was seen, as this information can be updated by other users. Medical History Closed fracture of neck of right femur Social History Smoking Status: Former smoker alcohol intake: never substance use type: denies use current occupational status: retired Travel in the last 8 weeks: None household members: family housing: house Review of Systems Review of Systems Review of systems:: unable to obtain Review of systems (narrative): Patient obtunded not responding to verbal stimuli Pulmonology Exam Inpatient Vital signs and Labs for Last 24 Hours: Temp Pulse Resp BP Pulse Ox O2 Del Method O2 Flow Rate 92.4 F L 75 19 140/57 L 98 BiPAP 2 01/30/24 08:24 01/30/24 09:01 01/30/24 09:01 01/30/24 09:01 01/30/24 09:01 01/30/24 08:00 01/30/24 03:35 FiO2 45 01/30/24 03:59 Laboratory Results - last 24 hr 01/30/24 03:45: WBC 6.7, RBC 2.69 L, Hgb 8.6 L, Hct 30.0 L, MCV 111.3 H, MCH 31.9 H, MCHC 28.7 L, RDW 16.8, Plt Count 126 L, MPV 10.6 H, Neut % (Auto) 84.5 H , Lymph % (Auto) 8.9 L, [place] % (Auto) 3.5, Eos % (Auto) 2.6, Baso % (Auto) 0.5, Neut # (Auto) 5.7, Lymph # (Auto) 0.6 L, [place] # (Auto) 0.2, Eos # (Auto) 0.2, Baso # (Auto) 0.0, Sodium 142, Potassium 5.3 H, Chloride 104, Carbon Dioxide 33 H, Anion Gap 10.3, BUN 100 H, Creatinine 3.00 H, Estimated Creat Clear 28, E stimated GFR 20 L, Est GFR ( Amer) 24 L, Glucose 128 H, Lactate 1.6, Calcium 8.5, Total Bilirubin 0.3, AST 55, ALT 12, Alkaline Phosphatase 161 H, Ammonia 10, Troponin I 0.02, NT-Pro-B Natriuret Pep 2860 H, Total Protein 6.3, Albumin 3.6, Globulin 2.7, Albumin/Globulin Ratio 1.3, TSH 3.07, Thyroxine (T4) 7.8, Salicylates < 1.0 L, Acetaminophen < 10 L, Acetone Level None detected 01/30/24 03:50: Urine Color Yellow, Urine Appearance Clear, Urine pH 5.5, Ur Specific [place] 1.020, Urine Protein Negative, Urine Glucose (UA) Negative, Urine Ketones Negative, Urine Blood Negative, Urine Nitrate Negative, Urine Bilirubin Negative, Urine Urobilinogen 0.2, Ur Leukocyte Esterase Negative, Urine WBC Occasional, Urine Bacteria Trace 01/30/24 03:51: VBG pH 7.20 L, VBG pCO2 74.1 H, VBG pO2 64.1 H, VBG HCO3 28.2, V BG Total CO2 30.5 H, VBG O2 Saturation 87.7 H, VBG Base Excess 0.1, VBG Lactic Acid 2.2 H 01/30/24 03:52: SARS-CoV-2 (PCR) Not detected, Influenza A Untype (PCR) Not detected, Influenza Type B (PCR) Not detected 01/30/24 04:02: Urine Opiates Screen Negative, Urine Methadone Screen Negative, Ur Barbituates Screen Negative, Ur Phencyclidine Scrn Negative, Ur Amphetamines Screen Negative, U Benzodiazepines Scrn Negative, Urine Cocaine Screen Negative, U Marijuana (THC) Screen Negative 01/30/24 07:17: Specimen Source Left radial, O2 % 45%, ABG pH 7.16 L*, ABG pCO2 77.4 H, ABG pO2 77.3 L, ABG HCO3 27.0 H, ABG Total CO2 29.4 H, ABG O2 Saturation 93, ABG Base Excess -1.6, Elver Test Acceptable 01/30/24 07:30: Troponin I 0.03 01/30/24 08:17: Lactate 1.1 I & O for Labs for Last 24 Hours: Intake & Output 01/27/24 01/28/24 01/29/24 01/30/24 23:59 23:59 23:59 23:59 Intake Total 29.00 / 29.00 Balance 29.00 / 29.00 Weight 257 lb Constitutional: Present severe distress Head: Present normocephalic and atraumatic Neck: Present normal inspection and full ROM Respiratory: Present respiratory distress, diminished air movement and able to speak in complete sentences Cardiac: Present Tachycardia and radial pulses present; Absent S1/S2 GI: Present distention, tenderness and rigidity Skin: Present lesions; Absent intact, cyanosis or jaundice Comment:: LE erythema Neuro: Absent alert, awake or oriented x 3 Extremities: Present edema; Absent normal inspection, clubbing or cyanosis Psychiatric: Present unable to assess Meds Home Medications and Allergies Home Medications Medication Instructions Recorded Confirmed Type acetaminophen 325 mg tablet 325 mg PO QID 01/30/24 01/30/24 History allopurinol 100 mg tablet 100 mg PO DAILY 01/30/24 01/30/24 History aspirin 81 mg tablet,delayed 81 mg PO DAILY 01/30/24 01/30/24 History release calcium carbonate 250 mg-vitamin 1 tab PO BID 01/30/24 01/30/24 History D3 3.125 mcg (125 unit) tablet (Oyster Shell Calcium-Vitamin D3) carbidopa 25 mg-levodopa 100 mg 1 tab PO TID 01/30/24 01/30/24 History tablet cholecalciferol (vitamin D3) 25 25 mcg PO DAILY 01/30/24 01/30/24 History mcg (1,000 unit) capsule citalopram 20 mg tablet 20 mg PO DAILY 01/30/24 01/30/24 History furosemide 40 mg tablet 40 mg PO DAILY 01/30/24 01/30/24 History hydrocortisone 1 % topical cream 1 applic topical DAILYP PRN Skin 01/30/24 01/30/24 History Condition ipratropium 0.5 mg-albuterol 3 mg 3 ml inhalation DAILYP PRN 01/30/24 01/30/24 History (2.5 mg base)/3 mL nebulization Shortness Of Breath Or Wheezing soln levothyroxine 200 mcg tablet 200 mcg PO DAILY 01/30/24 01/30/24 History levothyroxine 25 mcg tablet 25 mcg PO DAILY 01/30/24 01/30/24 History losartan 50 mg tablet 50 mg PO BID 01/30/24 01/30/24 History multivitamin-ferrous 1 tab PO DAILY 01/30/24 01/30/24 History fumarate-folic acid 18 mg-400 mcg tablet (Multi-Day with Iron) omega 3-dha 200 mg-epa 300 mg-fish 2 cap PO DAILY 01/30/24 01/30/24 History oil 1,000 mg capsule omeprazole 20 mg capsule,delayed 20 mg PO DAILY 01/30/24 01/30/24 History release polyethylene glycol 3350 17 gram 17 g PO DAILY 01/30/24 01/30/24 History oral powder packet (Miralax) polysaccharide iron complex 150 mg 150 mg PO DAILY 01/30/24 01/30/24 History iron capsule (Ferrex) pramipexole 1.5 mg tablet 1.5 mg PO TID 01/30/24 01/30/24 History pravastatin 20 mg tablet 20 mg PO TUTH 01/30/24 01/30/24 History silver sulfadiazine 1 % topical 1 applic topical DAILYP PRN Skin 01/30/24 01/30/24 History cream Condition terazosin 2 mg capsule 2 mg PO HS 01/30/24 01/30/24 History trazodone 50 mg tablet 50 mg PO HS 01/30/24 01/30/24 History New Prescriptions to Start Prescriptions: Allergies Allergy/AdvReac Type Severity Reaction Status Date / Time No Known Allergies Allergy Verified 09/02/21 14:14 Results Laboratory Findings 01/30/24 03:45 01/30/24 03:45 ABG ABG pH 7.16 mmol/L (7.35-7.45) L* 01/30/24 07:17 ABG pCO2 77.4 mmhg (35.0-45.0) H 01/30/24 07:17 ABG pO2 77.3 mmhg (80-100) L 01/30/24 07:17 ABG O2 Saturation 93 % (90-100) 01/30/24 07:17 Abnormal lab findings: Abnormal Labs 01/30/24 01/30/24 01/30/24 03:45 03:51 07:17 RBC 2.69 L Hgb 8.6 L Hct 30.0 L MCV 111.3 H MCH 31.9 H MCHC 28.7 L Plt Count 126 L MPV 10.6 H Neut % (Auto) 84.5 H Lymph % (Auto) 8.9 L Lymph # (Auto) 0.6 L ABG pH 7.16 L* ABG pCO2 77.4 H ABG pO2 77.3 L ABG HCO3 27.0 H ABG Total CO2 29.4 H VBG pH 7.20 L VBG pCO2 74.1 H VBG pO2 64.1 H VBG Total CO2 30.5 H VBG O2 Saturation 87.7 H VBG Lactic Acid 2.2 H Potassium 5.3 H Carbon Dioxide 33 H BUN 100 H Creatinine 3.00 H Estimated GFR 20 L Est GFR ( Amer) 24 L Glucose 128 H Alkaline Phosphatase 161 H NT-Pro-B Natriuret Pep 2860 H Salicylates < 1.0 L Acetaminophen < 10 L Assessment and Plan *Assessment and plan (1) Respiratory failure with hypoxia and hypercapnia: Status: Acute Category: Medical Code(s): J96.91 - Respiratory failure, unspecified with hypoxia; J96.92 - Respiratory failure, unspecified with hypercapnia (2) Hypothermia: Status: Acute Category: Medical Code(s): T68.XXXA - Hypothermia, initial encounter (3) Septic shock: Status: Acute Category: Medical Code(s): A41.9 - Sepsis, unspecified organism; R65.21 - Severe sepsis with septic shock Plan Mr. Haider is a 88-year-old care home resident presented to the ER with worsening respiratory suspect external altered mentation and pulmonary was called for further evaluation and management. His other complaints include hypothyroidism on levothyroxine 225mcg daily Parkinson's on Levodopa-carbidopa and pramiprexole, hypertension and CHF. He is also nebulization therapies on as-needed basis. No evidence of leukocytosis. Chest x-ray on admission stable from prior. Continue to left lower lobe atelectasis. Hemodynamically unstable needing pressor support, on Levophed 12 mcg. Hypercarbic respiratory failure currently on BiPAP therapy. Plan: -Continue current antibiotics including Vanco and cefepime pending blood cultures -Continue noninvasive ventilation currently with BiPAP at 10/27, RR-22 and FiO2 0f 40%. Follow with repeat ABG -DuoNebs every 4 hours on a scheduled basis -Follow with echocardiogram and lower extremity venous Doppler we will hold off on performing CTPE imaging -Monitor H&H -Renally dose medications. MAP goal greater than 65. Follow-up with [facility]. -Continue levothyroxine IV at 200 mcg daily and stress dose steroids -Continue Levodopa-carbidopa # Thank you for involving pulmonary in this patient care. Will continue to follow.
--- NOTE | 2024-01-30 10:25 | PC.NURSE ---
ECHO AT BEDSIDE
--- NOTE | 2024-01-30 11:09 | PC.NURSE ---
pt resting with his eyes closed, appears comfortable. call montero in reach.
[2024-01-30] MEDS: ALBUTEROL 0.083% 2.5 MG/3 ML NEB 5 MG IH (11:35)
--- NOTE | 2024-01-30 13:14 | CA_ITS ---
FINAL REPORT TECHNIQUE: Bilateral lower extremity venous duplex was performed with augmentation and compression. CLINICAL HISTORY: SOB, pitting edema to groin, red angry hot to touch legs with multiple healing sores COMPARISON: None FINDINGS: Examination of the lower extremity venous system is limited by the inability to adequately examine the legs below the knee secondary to marked edema and patient discomfort and movement. Proper flow is seen throughout the deep venous systems bilaterally, from the popliteal vein to the common femoral vein bilaterally. There is no evidence of deep venous thrombosis. The veins of the calf are not adequately visualized on this examination. IMPRESSION: No evidence of deep venous thrombosis from the popliteal vein through the common femoral vein bilaterally. The calf veins are not visualized below the knee as described above. Reviewed, Interpreted and Dictated by Dedrick Alexander MD Transcribed by Ellie Mojica Authenticated and [facility]
[2024-01-30 13:43] LABS: ABG Base Excess 3.9 mmol/L (-2.4-2.3); ABG HCO3 29.8 mmhg (22.0-26.0); ABG Oxygen Saturation 97 % (90-100); ABG PH 7.33 mmol/L (7.35-7.45); ABG PO2 99.9 mmhg (80-100); ABG TCO2 31.6 mmhg (23-27)
[2024-01-30 13:44] LABS: Allen's Test ACCEPTABLE; Oxygen 40 %; PEEP BIPAP 22/14
[2024-01-30 13:45] LABS: ABG PCO2 57.8 mmhg (35.0-45.0); Source Left Radial
--- NOTE | 2024-01-30 13:53 | PC.NURSE ---
report given to juanita mora on second floor
[2024-01-30 14:55] LABS: Creatine Kinase 111 U/L (55-170)
--- NOTE | 2024-01-30 16:20 | XR_ITS ---
PROCEDURE INFORMATION: Exam: XR Abdomen Exam date and time: 01/30/2024 4:46 PM Age: 88 years old Clinical indication: Device placement; Gi device; Nasogastric tube; Additional info: Ng tube placement TECHNIQUE: Imaging protocol: Radiologic exam of the abdomen. Views: Frontal supine view of the abdomen. 1 View. Total images: 2 COMPARISON: ABDW CT abdomen w con 09/17/2018 9:42 AM FINDINGS: Tubes, catheters and devices: Nasogastric tube is in place with the tip overlying the stomach. Gastrointestinal tract: Bowel gas pattern is nonobstructive and nonspecific. Bones/joints: Moderate degenerative changes of the thoracolumbar spine. IMPRESSION: 1. Nasogastric tube is in place with the tip overlying the stomach. 2. Bowel gas pattern is nonobstructive and nonspecific.
[2024-01-30 17:21] LABS: Hematocrit 30.4 % (42.0-52.0); Hemoglobin 9.1 g/dL (14.1-18.0)
[2024-01-30] MEDS: ALBUTEROL 0.083% 2.5 MG/3 ML NEB IH ×2 (18:05→22:03)
[2024-01-30] MEDS: HYDROCORTISONE SOD SUCCINATE 100MG VIAL 50 MG IV ×2 (18:15→22:00)
--- NOTE | 2024-01-30 18:55 | PC.NURSE ---
All care and documentation provided by Magui CONNORS was completed under by direct supervision. Juli Alcantara RN
[2024-01-30] MEDS: PANTOPRAZOLE 40MG VIAL 40 MG IV (20:42)
[2024-01-30] MEDS: CARBIDOPA/LEVODOPA 25/100MG TABLET 1 EACH PO (20:42)
[2024-01-31] VITALS (33 sets, daily range): BP systolic 99–166; BP diastolic 45–94; PULSE 73–96; RESP 10–28; TEMP 36.4–37.1; O2SAT 91–99; BMI 42.3
[2024-01-31] MEDS: ALBUTEROL 0.083% 2.5 MG/3 ML NEB IH ×6 (02:18→22:35)
--- NOTE | 2024-01-31 04:18 | PC.NURSE ---
LEVO GTT OFF SINCE 111
[2024-01-31] MEDS: HYDROCORTISONE SOD SUCCINATE 100MG VIAL 50 MG IV ×4 (05:58→23:13)
[2024-01-31] MEDS: LEVOTHYROXINE SODIUM 100 MCG VIAL 150 MCG IV (06:00)
[2024-01-31 07:17] LABS: Chloride 106 mmol/L (98-107)
[2024-01-31 07:18] LABS: Sodium 141 mmol/L (136-145)
[2024-01-31 07:20] LABS: Alanine Aminotransferase 12 U/L (12-78); Alkaline Phosphatase 172 U/L (38-126); Aspartate Amino Transferase 65 U/L (17-59); Basophils % 0.5 % (0.1-2.0); Bilirubin,Total 0.3 mg/dl (0.2-1.3); Carbon Dioxide 33 mmol/L (22.0-30.0); Creatinine Clearance Estimated 17 mL/min (50-200); Eosinophils # 0.1 K/mm3 (0.0-0.4); Eosinophils % 0.7 % (0.1-12.0); Estimated Glomerular Filt Rate 21 ml/min (>60); GFR (African American) 25 ML/MIN (>60); Hematocrit 29.1 % (42.0-52.0); Hemoglobin 8.4 g/dL (14.1-18.0); Lymphocytes # 0.9 K/mm3 (0.7-4.5); Lymphocytes % 11.8 % (10-50); Mean Corpuscular Hemoglobin 31.1 pg (27.0-31.2); Mean Corpuscular Volume 106.9 fl (80-94); Mean Platelet Volume 9.4 fl (7.4-10.4); Monocytes # 0.4 K/mm3 (0.1-1.0); Monocytes % 4.7 % (1.7-9.3); Neutrophils # 6.1 K/mm3 (1.8-7.8); Neutrophils % 82.4 % (37.0-80.0); Platelet Count 172 K/mm3 (142-424); Red Blood Count 2.72 M/mm3 (4.60-6.20); Red Cell Distribution Width 16.8 % (11.5-17.5); White Blood Count 7.4 K/mm3 (4.8-10.8)
[2024-01-31 07:21] LABS: Albumin Level 3.5 g/dl (3.5-5.0); Albumin/Globulin Ratio 1.3 (1.1-1.8); Calcium 8.6 mg/dl (8.4-10.2); Globulin 2.8 g/dL (1.3-3.2); Glucose 93 mg/dl (74-100); Magnesium 2.1 mg/dl (1.6-2.3); Total Protein,Serum 6.3 g/dl (6.3-8.2)
[2024-01-31 07:23] LABS: Anion Gap 8.1 mEq/L (5-15); Blood Urea Nitrogen 107 mg/dl (9-20); Potassium 6.1 mmoL/L (3.5-5.1)
--- NOTE | 2024-01-31 07:46 | ECG_ITS ---
APPROVED REPORT Exam: Resting ECG HR:80 bpm ECG Measurements Heart Rate 80 AXES NH 306 P 30 QRSd 109 QRS -13 QT 355 T 46 QTc 391 Conclusion SINUS RHYTHM WITH FIRST DEGREE AV BLOCK INDETERMINATE AXIS LOW QRS VOLTAGE IN PRECORDIAL LEADS [QRS DEFLECTION < 1.0 mV IN CHEST LEADS] ANTEROSEPTAL MYOCARDIAL INFARCTION , OF INDETERMINATE AGE [40+ ms Q WAVE IN V1-V4] No acute STEMI Electronically signed by : BURAK CAR, 01/31/2024 15:27:28
[2024-01-31] MEDS: DEXTROSE 50% 50ML SYRINGE (CRASH CART) 50 ML IVP (07:51)
[2024-01-31] MEDS: humaLOG 100 UNITS/ML 3ML VIAL (SSI) 10 UNIT SQ (07:51)
[2024-01-31] MEDS: ENOXAPARIN 40MG/0.4ML SYRINGE 40 MG SQ (08:38)
[2024-01-31] MEDS: LOKELMA 5GM PACKET 10 GM PO (08:38)
[2024-01-31] MEDS: POLYETHYLENE GLYCOL 3350 17 GM PACKET PO (08:38)
[2024-01-31] MEDS: CEFEPIME HCL 2 GM in 0.9 % SODIUM CHLORIDE 100 ML IV (08:39)
[2024-01-31] MEDS: CARBIDOPA/LEVODOPA 25/100MG TABLET 1 EACH PO ×3 (08:39→20:28)
[2024-01-31] MEDS: PRAMIPEXOLE 1MG TAB 1.5 MG PO ×3 (08:39→20:28)
[2024-01-31 09:01] LABS: POC Glucose,Bedside 81 (70-110)
--- NOTE | 2024-01-31 09:15 | HMH.PHAINT1 ---
Pharmacy Intervention Comments: HOME MEDICATION LIST VERIFIED VIA FACILITY LIST
--- NOTE | 2024-01-31 09:51 | P.PN_ITS ---
Subjective *Date: 01/31/24 *Time: 15:00 Interval history: No acute respiratory events overnight. Continued to remain obtunded Pulmonology Exam Inpatient Vital signs and Labs for Last 24 Hours: Temp Pulse Resp BP Pulse Ox O2 Del Method O2 Flow Rate 98.3 F 78 19 123/54 L 97 BiPAP 2 01/31/24 07:57 01/31/24 09:47 01/31/24 09:00 01/31/24 09:00 01/31/24 09:00 01/31/24 09:00 01/30/24 03:35 FiO2 40 01/31/24 09:47 Laboratory Results - last 24 hr 01/30/24 03:45: Cortisol 22.0 H 01/30/24 07:30: Total Creatine Kinase 111 01/30/24 13:40: Specimen Source Left radial, O2 % 40, ABG pH 7.33 L, ABG pCO2 57.8 H, ABG pO2 99.9, ABG HCO3 29.8 H, ABG Total CO2 31.6 H, ABG O2 Saturation 97, ABG Base Excess 3.9 H, Elver Test Acceptable, PEEP Bipap 22/14 01/30/24 17:10: Hgb 9.1 L, Hct 30.4 L 01/31/24 06:25: WBC 7.4, RBC 2.72 L, Hgb 8.4 L, Hct 29.1 L, MCV 106.9 H, MCH 31.1, MCHC 29.0 L, RDW 16.8, Plt Count 172 D, MPV 9.4, Neut % (Auto) 82.4 H, Lymph % (Auto) 11.8, [place] % (Auto) 4.7, Eos % (Auto) 0.7, Baso % (Auto) 0.5, Neut # (Auto) 6.1, Lymph # (Auto) 0.9, [place] # (Auto) 0.4, Eos # (Auto) 0.1, Baso # (Auto) 0.0, Sodium 141, Potassium 6.1 H*, Chloride 106, Carbon Dioxide 33 H, Anion Gap 8.1, BUN 107 H*, Creatinine 2.90 H, Estimated Creat Clear 17, Estimated GFR 21 L, Est GFR ( Amer) 25 L, Glucose 93, Calcium 8.6, Magnesium 2.1, Total Bilirubin 0.3, AST 65 H, ALT 12, Alkaline Phosphatase 172 H , Total Protein 6.3, Albumin 3.5, Globulin 2.8, Albumin/Globulin Ratio 1.3 01/31/24 08:47: POC Glucose 81 Temp Pulse Resp BP Pulse Ox O2 Del Method O2 Flow Rate 92.4 F L 75 19 140/57 L 98 BiPAP 2 01/30/24 08:24 01/30/24 09:01 01/30/24 09:01 01/30/24 09:01 01/30/24 09:01 01/30/24 08:00 01/30/24 03:35 FiO2 45 01/30/24 03:59 Laboratory Results - last 24 hr 01/30/24 03:45: WBC 6.7, RBC 2.69 L, Hgb 8.6 L, Hct 30.0 L, MCV 111.3 H, MCH 31.9 H, MCHC 28.7 L, RDW 16.8, Plt Count 126 L, MPV 10.6 H, Neut % (Auto) 84.5 H , Lymph % (Auto) 8.9 L, [place] % (Auto) 3.5, Eos % (Auto) 2.6, Baso % (Auto) 0.5, Neut # (Auto) 5.7, Lymph # (Auto) 0.6 L, [place] # (Auto) 0.2, Eos # (Auto) 0.2, Baso # (Auto) 0.0, Sodium 142, Potassium 5.3 H, Chloride 104, Carbon Dioxide 33 H, Anion Gap 10.3, BUN 100 H, Creatinine 3.00 H, Estimated Creat Clear 28, Estimated GFR 20 L, Est GFR ( Amer) 24 L, Glucose 128 H, Lactate 1.6, Calcium 8.5, Total Bilirubin 0.3, AST 55, ALT 12, Alkaline Phosphatase 161 H, Ammonia 10, Troponin I 0.02, NT-Pro-B Natriuret Pep 2860 H, Total Protein 6.3, Albumin 3.6, Globulin 2.7, Albumin/Globulin Ratio 1.3, TSH 3.07, Thyroxine (T4) 7.8, Salicylates < 1.0 L, Acetaminophen < 10 L, Acetone Level None detected 01/30/24 03:50: Urine Color Yellow, Urine Appearance Clear, Urine pH 5.5, Ur Specific [place] 1.020, Urine Protein Negative, Urine Glucose (UA) Negative, Urine Ketones Negative, Urine Blood Negative, Urine Nitrate Negative, Urine Bilirubin Negative, Urine Urobilinogen 0.2, Ur Leukocyte Esterase Negative, Urine WBC Occasional, Urine Bacteria Trace 01/30/24 03:51: VBG pH 7.20 L, VBG pCO2 74.1 H, VBG pO2 64.1 H, VBG HCO3 28.2, VBG Total CO2 30.5 H, VBG O2 Saturation 87.7 H, VBG Base Excess 0.1, VBG Lactic Acid 2.2 H 01/30/24 03:52: SARS-CoV-2 (PCR) Not detected, Influenza A Untype (PCR) Not detected, Influenza Type B (PCR) Not detected 01/30/24 04:02: Urine Opiates Screen Negative, Urine Methadone Screen Negative, Ur Barbituates Screen Negative, Ur Phencyclidine Scrn Negative, Ur Amphetamines Screen Negative, U Benzodiazepines Scrn Negative, Urine Cocaine Screen Negative, U Marijuana (THC) Screen Negative 01/30/24 07:17: Specimen Source Left radial, O2 % 45%, ABG pH 7.16 L*, ABG pCO2 77.4 H, ABG pO2 77.3 L, ABG HCO3 27.0 H, ABG Total CO2 29.4 H, ABG O2 Saturation 93, ABG Base Excess -1.6, Elver Test Acceptable 01/30/24 07:30: Troponin I 0.03 01/30/24 08:17: Lactate 1.1 I & O for Labs for Last 24 Hours: Intake & Output 01/28/24 01/29/24 01/30/24 01/31/24 23:59 23:59 23:59 23:59 Intake Total 298.256 / 298.256 152 / 152 Output Total 355 / 355 625 / 625 Balance -56.744 / -56.744 -473 / -473 Weight 283 lb 6.4 oz 285 lb 12.8 oz Intake & Output 01/27/24 01/28/24 01/29/24 01/30/24 23:59 23:59 23:59 23:59 Intake Total 29.00 / 29.00 Balance 29.00 / 29.00 Weight 257 lb Constitutional: Present severe distress Head: Present normocephalic and atraumatic Neck: Present normal inspection and full ROM Respiratory: Present respiratory distress, wheezes and diminished air movement Cardiac: Present Tachycardia and radial pulses present; Absent S1/S2 GI: Present distention, tenderness and rigidity Skin: Present lesions; Absent intact, cyanosis or jaundice Comment:: LE erythema Neuro: Absent alert, awake or oriented x 3 Extremities: Present edema; Absent normal inspection, clubbing or cyanosis Psychiatric: Present unable to assess Assessment and Plan *Assessment and plan (1) Respiratory failure with hypoxia and hypercapnia: Status: Acute Category: Medical Code(s): J96.91 - Respiratory failure, unspecified with hypoxia; J96.92 - Respiratory failure, unspecified with hypercapnia (2) Hypothermia: Status: Acute Category: Medical Code(s): T68.XXXA - Hypothermia, initial encounter (3) Septic shock: Status: Acute Category: Medical Code(s): A41.9 - Sepsis, unspecified organism; R65.21 - Severe sepsis with septic shock Plan Mr. Haider is a 88-year-old [place] [facility] resident presented to the ER with worsening respiratory suspect external altered mentation and pulmonary was called for further evaluation and management. His other complaints include hypothyroidism on levothyroxine 225mcg daily Parkinson's on Levodopa-carbidopa and pramiprexole, hypertension and CHF. He is also nebulization therapies on as-needed basis. No evidence of leukocytosis. Chest x-ray on admission stable from prior. Continue to left lower lobe atelectasis. Hemodynamically unstable needing pressor support, on Levophed 12 mcg. Hypercarbic respiratory failure currently on BiPAP therapy. Interval update: Continue to remain on BiPAP therapy, with improving hypercarbic respiratory failure. On minimal O2 supplementation at FiO2 of 30%. Despite improvement in patient's hypercarbic respiratory failure no significant pulmonary mentation noted. Currently opening eyes to painful stimuli. Not following any commands. Uremia and CED on CKD continue to be worsening along with significant electrolyte derangements. Creatinine kinase within normal limits. Shock improved. Hemodynamically stable. Not on any pressors. Rhythm strip venous Doppler negative for DVT. Agree with goals of care discussion in the setting of patient's baseline comorbidities along with worsening CED on CKD with possible need for renal replacement therapy Plan: -Continue current antibiotics including Vanco and cefepime pending blood cultures -Continue noninvasive ventilation currently with BiPAP at 14/22, RR-22 and FiO2 0f 30%. Despite improving hypercarbic respiratory failure given patient's continued altered mentation in the setting of DNR/DNI plan was made to continue BiPAP therapy to facilitate ventilation at this point of time -DuoNebs every 4 hours on a scheduled basis -Can change levothyroxine oral supplementation given oral access at this point of time. He continue to receive medications for his Parkinson's disease through feeding tube # Thank you for involving pulmonary in this patient care. Will continue to follow.
[2024-01-31 11:44] LABS: ABG Base Excess 0.3 mmol/L (-2.4-2.3); ABG HCO3 25.8 mmhg (22.0-26.0); ABG Oxygen Saturation 91 % (90-100); ABG PCO2 47.3 mmhg (35.0-45.0); ABG PH 7.36 mmol/L (7.35-7.45); ABG PO2 62.9 mmhg (80-100); ABG TCO2 27.3 mmhg (23-27)
[2024-01-31 12:03] LABS: Oxygen 40% %; Source vbg; Tidal Volume 22/14
[2024-01-31 12:25] LABS: Chloride 107 mmol/L (98-107); Potassium 5.6 mmoL/L (3.5-5.1); Sodium 142 mmol/L (136-145)
[2024-01-31 12:28] LABS: Anion Gap 9.6 mEq/L (5-15); Calcium 8.7 mg/dl (8.4-10.2); Carbon Dioxide 31 mmol/L (22.0-30.0); Creatinine Clearance Estimated 18 mL/min (50-200); Estimated Glomerular Filt Rate 22 ml/min (>60); GFR (African American) 27 ML/MIN (>60); Glucose 88 mg/dl (74-100)
[2024-01-31 12:53] LABS: Blood Urea Nitrogen 112 mg/dl (9-20)
--- NOTE | 2024-01-31 14:13 | HMH.PTWOUND ---
Rehab Inpt Wound Evaluation Rehab IP Wound Evaluation Start: 01/30/24 16:43 Freq: ONCE Status: Active Protocol: Document 01/31/24 14:06 ANGELI (Rec: 01/31/24 14:13 PHOSARAH [id number]) Rehab PT Wound Assessment Subjective Subjective 88 yowm adm to [facility] with septic shock. He has PMH of obesity, CKD, hypertension, Parkinson' s. He is a [facility] resident at baseline. He presents with R lower leg wounds upon admission. Wound Right Lower Leg Wound Type cellulitis Is This a Chronic Wound Yes Wound Length (cm) 14.0 Wound Width (cm) 4.0 Wound Depth (cm) 0.1 Wound Bed Appearance [place] Wound Margins Description Indistinct Surrounding Tissue Appearance Macerated Wound Drainage Description Serous Drainage Amount Moderate Primary Dressing Absorbant Pad Comment maxorb Wound Secondary Dressing Type Gauze Roll/Wrap,Adhering Gauze Roll Wound Debridement Method Gauze,Mechanical Wound Debridement Amount of Tissue Minimal Removed Dressing Change Patient Tolerance Tolerated Well Plan/Recommendation Comment Pt wound is stable, but draining MOD amt of serous fluid at this time. He also presents with 2+ pitting edema to the R lower leg. Recommend to continue dressing changes as above once every 2-3 days to control drainage. Eval Complexity Eval Charge Codes 10064 - High Complexity PHYSICIAN CERTIFICATION: I certify the specified therapy services for Patel Ray Withers are required, authorized, and reviewed every 30 days.
--- NOTE | 2024-01-31 17:00 | EXP.ACUTE.PN ---
Subjective *Date: 01/31/24 *Time: 17:00 Interval history: Patient is on BiPAP this morning. No improvement in labs. Minimal responsiveness on exam. Blood pressure improved and off Levophed overnight. No nausea or vomiting. Has had a bowel movement today. Labs show concern for worsening potassium, elevated 6.1. Afebrile overnight. Maintaining body temperature for the past 12 hours. Medical Exam Vital signs and Labs for Last 24 Hours: Vital Signs Temp Pulse Pulse Resp BP Pulse Ox O2 Del Method 01/31/24 16:00 97.6 F 01/31/24 15:00 88 21 135/58 L 99 BiPAP 01/31/24 14:58 01/31/24 14:58 BiPAP 01/31/24 14:39 80 01/31/24 14:39 84 01/31/24 14:00 82 20 145/71 H 96 BiPAP 01/31/24 13:08 BiPAP 01/31/24 13:00 86 19 125/66 97 BiPAP 01/31/24 12:00 80 01/31/24 12:00 89 28 H 131/66 96 BiPAP 01/31/24 12:00 95 BiPAP 01/31/24 11:51 98.3 F 01/31/24 11:00 86 24 144/77 H 95 BiPAP 01/31/24 11:00 BiPAP 01/31/24 10:00 85 22 116/57 L 91 L BiPAP 01/31/24 09:47 78 01/31/24 09:47 78 01/31/24 09:47 01/31/24 09:00 BiPAP 01/31/24 09:00 82 19 123/54 L 97 BiPAP 01/31/24 08:00 90 01/31/24 08:00 97 BiPAP 01/31/24 08:00 84 20 135/69 97 BiPAP 01/31/24 07:57 98.3 F 01/31/24 07:00 91 H 22 128/61 95 BiPAP 01/31/24 06:56 BiPAP 01/31/24 06:22 89 01/31/24 06:22 88 01/31/24 06:22 01/31/24 06:00 79 25 H 149/65 H 98 BiPAP 01/31/24 05:00 81 22 131/64 99 BiPAP 01/31/24 05:00 BiPAP 01/31/24 04:00 80 01/31/24 04:00 98.5 F 01/31/24 04:00 86 27 H 111/47 L 97 BiPAP 01/31/24 04:00 BiPAP 01/31/24 03:00 79 22 104/45 L 96 BiPAP 01/31/24 03:00 BiPAP 01/31/24 02:19 81 01/31/24 02:19 85 01/31/24 02:19 01/31/24 02:00 82 22 99/59 L 98 BiPAP 01/31/24 01:00 74 22 141/60 H 96 01/31/24 01:00 BiPAP 01/31/24 00:00 83 22 126/69 98 BiPAP 01/31/24 00:00 BiPAP 01/31/24 00:00 84 01/31/24 00:00 98.2 F 01/30/24 23:00 86 29 H 134/50 L 98 BiPAP 01/30/24 23:00 BiPAP 01/30/24 22:07 01/30/24 22:04 76 01/30/24 22:04 82 01/30/24 22:00 84 26 H 137/53 L 100 BiPAP 01/30/24 21:00 84 24 168/84 H 98 BiPAP 01/30/24 21:00 BiPAP 01/30/24 20:00 82 23 131/60 99 BiPAP 01/30/24 20:00 BiPAP 01/30/24 20:00 97.7 F 01/30/24 20:00 79 01/30/24 19:00 101 H 22 125/45 L 98 BiPAP 01/30/24 18:31 BiPAP 01/30/24 18:08 01/30/24 18:05 85 01/30/24 18:05 90 01/30/24 18:00 97.9 F 77 22 141/62 H 100 BiPAP FiO2 01/31/24 16:00 01/31/24 15:00 01/31/24 14:58 30 01/31/24 14:58 01/31/24 14:39 01/31/24 14:39 01/31/24 14:00 01/31/24 13:08 01/31/24 13:00 01/31/24 12:00 01/31/24 12:00 01/31/24 12:00 01/31/24 11:51 01/31/24 11:00 01/31/24 11:00 01/31/24 10:00 01/31/24 09:47 01/31/24 09:47 01/31/24 09:47 40 01/31/24 09:00 01/31/24 09:00 01/31/24 08:00 01/31/24 08:00 01/31/24 08:00 01/31/24 07:57 01/31/24 07:00 01/31/24 06:56 01/31/24 06:22 01/31/24 06:22 01/31/24 06:22 40 01/31/24 06:00 01/31/24 05:00 01/31/24 05:00 01/31/24 04:00 01/31/24 04:00 01/31/24 04:00 01/31/24 04:00 01/31/24 03:00 01/31/24 03:00 01/31/24 02:19 01/31/24 02:19 01/31/24 02:19 40 01/31/24 02:00 01/31/24 01:00 01/31/24 01:00 01/31/24 00:00 01/31/24 00:00 01/31/24 00:00 01/31/24 00:00 01/30/24 23:00 01/30/24 23:00 01/30/24 22:07 40 01/30/24 22:04 01/30/24 22:04 01/30/24 22:00 01/30/24 21:00 01/30/24 21:00 01/30/24 20:00 01/30/24 20:00 01/30/24 20:00 01/30/24 20:00 01/30/24 19:00 40 01/30/24 18:31 01/30/24 18:08 40 01/30/24 18:05 01/30/24 18:05 01/30/24 18:00 Intake and Output 01/31/24 01/31/24 01/31/24 07:59 15:59 23:59 Intake Total 152 / 252 100 / 252 Output Total 500 / 985 485 / 985 0 Balance -348 / -733 -385 / -733 0 / -733 Intake: Intake, Oral Amount 0 / 0 Intake, Other Amount 140 / 140 Intake, Total IV Amount Cefepime HCl 2 gm In 0.9 % 100 / 100 Sodium Chloride 100 ml @ 200 mls/hr IV Q12H [facility] Rx#:[id number] Output: Output, Urine Amount 0 / 0 0 / 0 0 / 0 Output, Urine Amount (Catheter) 500 / 985 485 / 985 May 500 / 985 485 / 985 Other: Number of Unmeasured Voids 0 0 0 Number of Bowel Movements 1 Weight 129.637 kg Patient Weight 01/31/24 23:59 Weight 129.637 kg Laboratory Results - last 24 hr 01/30/24 03:45: Cortisol 22.0 H 01/30/24 17:10: Hgb 9.1 L, Hct 30.4 L 01/31/24 06:25: WBC 7.4, RBC 2.72 L, Hgb 8.4 L, Hct 29.1 L, MCV 106.9 H, MCH 31.1, MCHC 29.0 L, RDW 16.8, Plt Count 172 D, MPV 9.4, Neut % (Auto) 82.4 H, Lymph % (Auto) 11.8, [place] % (Auto) 4.7, Eos % (Auto) 0.7, Baso % (Auto) 0.5, Neut # (Auto) 6.1, Lymph # (Auto) 0.9, [place] # (Auto) 0.4, Eos # (Auto) 0.1, Baso # (Auto) 0.0, Sodium 141, Potassium 6.1 H*, Chloride 106, Carbon Dioxide 33 H, Anion Gap 8.1, BUN 107 H*, Creatinine 2.90 H, Estimated Creat Clear 17, Estimated GFR 21 L, Est GFR ( Amer) 25 L, Glucose 93, Calcium 8.6, Magnesium 2.1, Total Bilirubin 0.3, AST 65 H, ALT 12, Alkaline Phosphatase 172 H, Total Protein 6.3, Albumin 3.5, Globulin 2.8, Albumin/Globulin Ratio 1.3 01/31/24 08:47: POC Glucose 81 01/31/24 11:34: Specimen Source vbg, O2 % 40%, ABG pH 7.36, ABG pCO2 47.3 H, ABG pO2 62.9 L, ABG HCO3 25.8, ABG Total CO2 27.3 H, ABG O2 Saturation 91, ABG Base Excess 0.3, Tidal Volume 22/14 01/31/24 12:05: Sodium 142, Potassium 5.6 H, Chloride 107, Carbon Dioxide 31 H, Anion Gap 9.6, BUN 112 H*, Creatinine 2.70 H, Estimated Creat Clear 18, Estimated GFR 22 L, Est GFR ( Amer) 27 L, Glucose 88, Calcium 8.7 I & O for Labs for Last 24 Hours: Intake & Output 01/28/24 01/29/24 01/30/24 01/31/24 23:59 23:59 23:59 23:59 Intake Total 298.256 / 298.256 252 / 252 Output Total 355 / 355 985 / 985 Balance -56.744 / -56.744 -733 / -733 Weight 128.548 kg 129.637 kg Constitutional: Present moderate distress, obese, chronically ill appearing and somnolent Head: Present atraumatic and normocephalic ENT: Present normal exam Respiratory: Present accessory muscle use and distant breath sounds; Absent rhonchi, wheezes or crackles Comment:: On BiPAP Cardiac: Present Reg Rate and Rhythm GI: Present soft, distention and normal bowel sounds; Absent tenderness Rectal (male): Present deferred (male): Present normal inspection Extremities: Present normal inspection, full ROM and edema (2+ to his knee); Absent tenderness Skin: Present intact; Absent erythema Neuro: Present Resting Tremor, alert and moves all extremities Comment:: Tremor present Assessment and Plan *Assessment and plan (1) Septic shock: Status: Acute Category: Medical Code(s): A41.9 - Sepsis, unspecified organism; R65.21 - Severe sepsis with septic shock (2) Hypothermia: Status: Resolved Category: Medical Code(s): T68.XXXA - Hypothermia, initial encounter (3) Hyperkalemia: Status: Acute Category: Medical Code(s): E87.5 - Hyperkalemia (4) Respiratory failure with hypoxia and hypercapnia: Status: Acute Category: Medical Code(s): J96.91 - Respiratory failure, unspecified with hypoxia; J96.92 - Respiratory failure, unspecified with hypercapnia (5) Class 2 obesity: Status: Acute Category: Medical Code(s): E66.9 - Obesity, unspecified (6) CED (acute kidney injury): Status: Acute Category: Medical Code(s): N17.9 - Acute kidney failure, unspecified (7) Parkinsons disease: Status: Chronic Category: Medical Code(s): G20 - Parkinson's disease (8) Heart failure: Status: Acute Category: Medical Code(s): I50.9 - Heart failure, unspecified (9) Hypothyroid: Status: Chronic Category: Medical Code(s): E03.9 - Hypothyroidism, unspecified Plan 88-year-old male with history of Parkinson's who resides at a alf. Presented in septic shock with acute hypercapnic respiratory failure, hypothermia, no focal source for infection at this time but presumed infectious with UTI versus pneumonia versus abdominal infection. Presentation could also be likely to hypercapnia from confusion with his elevated BUN leading to hypothermia and hypotension. Discussed case with ER physician, request admission for ICU level care. Agree with admission. Medicine admitted for further management. Continue on BiPAP at this time, improving blood gas but no improvement in mentation or alertness. Continues to require ICU level of care. Pulmonology assisting with management. Problems addressed as follows: Shock - Differential includes cardiogenic shock, septic shock, hypovolemic shock, obstructive shock. Will obtain echocardiogram to evaluate heart function. Lower extremity duplex to evaluate DVT. Continue BiPAP pending improvement in hypercapnia. Continue Levophed for MAP greater than 65. -Ultrasound lower extremities negative for DVT- -discussed case with pulmonology, recommend continuing broad-spectrum antibiotics with vancomycin and cefepime. Awaiting blood cultures. Continue BiPAP with current settings of , respiratory rate of 22, FiO2 of 30%. - Patient continues to remain altered even in the setting of improving hypercarbia. Encourage continued goals of care discussions with family. - DuoNebs every 4 hours scheduled -White cell count 7.4. Blood pressure has stabilized, off Levophed. Maintaining body temperature at this time. - Echocardiogram obtained, preliminary read shows preserved EF -Renally dose medications. MAP goal greater than 65. -CK obtained, 111, not elevated. Acute renal failure: Uremia: -Kidney function worsening. Creatinine 2.9 today, BUN 107. Potassium rising to 6.1. Will treat medically with 1 amp of D50 and 10 units of insulin. 1 dose of Lokelma. Repeat BMP at 2 PM. In light of renal failure with severely elevated BUN, altered mental status, hyperkalemia, if no improvement in the next 24 hours, would recommend transfer for hemodialysis pending goals of care with family. -Repeat CBC, CMP, magnesium ordered for the morning Hypothyroid: TSH 1.4. Transition to oral levothyroxine, 200 mcg daily. Hypertension: Holding home regimen given presentation with hypotension and return to normotensive status at this time. Parkinson's: Continue carbidopa/levodopa and pramipexole 3 times a day per tube Pantoprazole 40 mg IV nightly for GERD Advance care planning discussion with family today, will consult hospice tomorrow if no improvement clinically DNR/DNI NPO Lovenox 40 mg subcu daily
[2024-01-31] MEDS: PANTOPRAZOLE 40MG VIAL 40 MG IV (20:28)
[2024-01-31] MEDS: TERAZOSIN 1MG CAPSULE 2 MG PO (20:28)
[2024-01-31] MEDS: SODIUM CHLORIDE 0.9% 10ML VIAL 10 ML IV (20:28)
[2024-02-01] VITALS (25 sets, daily range): BP systolic 134–181; BP diastolic 68–101; PULSE 72–98; RESP 15–26; TEMP 36.8–37.1; O2SAT 95–100; BMI 41.3
[2024-02-01] MEDS: ALBUTEROL 0.083% 2.5 MG/3 ML NEB IH ×6 (03:01→22:48)
[2024-02-01] MEDS: HYDROCORTISONE SOD SUCCINATE 100MG VIAL 50 MG IV ×2 (05:08→12:11)
[2024-02-01 06:34] LABS: Alanine Aminotransferase 15 U/L (12-78); Albumin Level 3.7 g/dl (3.5-5.0); Albumin/Globulin Ratio 1.3 (1.1-1.8); Alkaline Phosphatase 155 U/L (38-126); Anion Gap 12.2 mEq/L (5-15); Aspartate Amino Transferase 51 U/L (17-59); Bilirubin,Total 0.5 mg/dl (0.2-1.3); Calcium 9.3 mg/dl (8.4-10.2); Carbon Dioxide 31 mmol/L (22.0-30.0); Chloride 108 mmol/L (98-107); Creatinine Clearance Estimated 18 mL/min (50-200); Estimated Glomerular Filt Rate 22 ml/min (>60); GFR (African American) 27 ML/MIN (>60); Globulin 2.9 g/dL (1.3-3.2); Glucose 111 mg/dl (74-100); Magnesium 2.3 mg/dl (1.6-2.3); Potassium 5.2 mmoL/L (3.5-5.1); Sodium 146 mmol/L (136-145); Total Protein,Serum 6.6 g/dl (6.3-8.2)
[2024-02-01 06:36] LABS: Basophils % 0.4 % (0.1-2.0); Eosinophils % 0.2 % (0.1-12.0); Hematocrit 28.2 % (42.0-52.0); Hemoglobin 8.3 g/dL (14.1-18.0); Lymphocytes % 15.1 % (10-50); Mean Corpuscular HGB Conc 29.5 g/dL (31.8-35.4); Mean Corpuscular Hemoglobin 31.4 pg (27.0-31.2); Mean Corpuscular Volume 106.4 fl (80-94); Mean Platelet Volume 9.7 fl (7.4-10.4); Monocytes # 0.3 K/mm3 (0.1-1.0); Monocytes % 5.1 % (1.7-9.3); Neutrophils # 5.2 K/mm3 (1.8-7.8); Neutrophils % 79.2 % (37.0-80.0); Platelet Count 165 K/mm3 (142-424); Red Blood Count 2.65 M/mm3 (4.60-6.20); Red Cell Distribution Width 16.8 % (11.5-17.5); White Blood Count 6.6 K/mm3 (4.8-10.8)
[2024-02-01] MEDS: VANCOMYCIN HCL 2,000 MG in 0.9 % SODIUM CHLORIDE 250 ML 125 MG IV (06:47)
[2024-02-01 07:14] LABS: Blood Urea Nitrogen 108 mg/dl (9-20)
--- NOTE | 2024-02-01 08:09 | EXP.ACUTE.PN ---
Subjective *Date: 02/01/24 *Time: 17:19 Interval history: No clinical improvement overnight. Opens eyes to voice but no meaningful response. Tolerating BiPAP. Kidney function with no improvement. Discussed case with family at bedside, decision to transition to hospice care. Hospice consulted. Medical Exam Vital signs and Labs for Last 24 Hours: Vital Signs Temp Pulse Pulse Resp BP Pulse Ox O2 Del Method 02/01/24 06:59 90 22 158/75 H 97 BiPAP 02/01/24 06:38 BiPAP 02/01/24 06:11 82 02/01/24 06:11 72 02/01/24 06:11 02/01/24 06:00 86 22 151/77 H 97 BiPAP 02/01/24 05:00 98.4 F 90 22 145/69 H 99 BiPAP 02/01/24 05:00 BiPAP 02/01/24 04:00 83 02/01/24 04:00 83 96 BiPAP 02/01/24 04:00 87 22 155/77 H 96 BiPAP 02/01/24 03:02 73 02/01/24 03:02 85 02/01/24 03:02 02/01/24 03:00 83 22 152/83 H 95 BiPAP 02/01/24 03:00 BiPAP 02/01/24 02:00 83 22 164/84 H 98 BiPAP 02/01/24 01:00 78 22 159/75 H 97 BiPAP 02/01/24 01:00 BiPAP 02/01/24 00:00 76 02/01/24 00:00 82 96 BiPAP 02/01/24 00:00 98.8 F 80 22 138/70 95 BiPAP 01/31/24 23:00 85 22 166/60 H 95 BiPAP 01/31/24 23:00 BiPAP 01/31/24 22:36 82 01/31/24 22:36 82 01/31/24 22:36 01/31/24 22:00 85 22 141/70 H 96 BiPAP 01/31/24 21:00 75 22 141/74 H 95 BiPAP 01/31/24 21:00 BiPAP 01/31/24 20:00 83 01/31/24 20:00 84 95 BiPAP 01/31/24 20:00 98.8 F 92 H 22 130/64 95 BiPAP 01/31/24 19:00 83 22 119/54 L 96 BiPAP 01/31/24 18:31 BiPAP 01/31/24 18:30 01/31/24 18:30 73 01/31/24 18:30 77 01/31/24 18:00 83 10 L 143/68 H 95 BiPAP 01/31/24 17:00 BiPAP 01/31/24 17:00 81 13 143/94 H 96 BiPAP 01/31/24 16:00 97 BiPAP 01/31/24 16:00 96 H 14 139/80 97 BiPAP 01/31/24 16:00 97.6 F 01/31/24 15:00 88 21 135/58 L 99 BiPAP 01/31/24 14:58 01/31/24 14:58 BiPAP 01/31/24 14:39 80 01/31/24 14:39 84 01/31/24 14:00 82 20 145/71 H 96 BiPAP 01/31/24 13:08 BiPAP 01/31/24 13:00 86 19 125/66 97 BiPAP 01/31/24 12:00 80 01/31/24 12:00 89 28 H 131/66 96 BiPAP 01/31/24 12:00 95 BiPAP 01/31/24 11:51 98.3 F 01/31/24 11:00 86 24 144/77 H 95 BiPAP 01/31/24 11:00 BiPAP 01/31/24 10:00 85 22 116/57 L 91 L BiPAP 01/31/24 09:47 78 01/31/24 09:47 78 01/31/24 09:47 01/31/24 09:00 BiPAP 01/31/24 09:00 82 19 123/54 L 97 BiPAP FiO2 02/01/24 06:59 40 02/01/24 06:38 02/01/24 06:11 02/01/24 06:11 02/01/24 06:11 30 02/01/24 06:00 40 02/01/24 05:00 40 02/01/24 05:00 02/01/24 04:00 02/01/24 04:00 40 02/01/24 04:00 40 02/01/24 03:02 02/01/24 03:02 02/01/24 03:02 30 02/01/24 03:00 40 02/01/24 03:00 02/01/24 02:00 40 02/01/24 01:00 40 02/01/24 01:00 02/01/24 00:00 02/01/24 00:00 40 02/01/24 00:00 40 01/31/24 23:00 40 01/31/24 23:00 01/31/24 22:36 01/31/24 22:36 01/31/24 22:36 30 01/31/24 22:00 40 01/31/24 21:00 40 01/31/24 21:00 01/31/24 20:00 01/31/24 20:00 40 01/31/24 20:00 40 01/31/24 19:00 40 01/31/24 18:31 01/31/24 18:30 30 01/31/24 18:30 01/31/24 18:30 01/31/24 18:00 01/31/24 17:00 01/31/24 17:00 01/31/24 16:00 01/31/24 16:00 01/31/24 16:00 01/31/24 15:00 01/31/24 14:58 30 01/31/24 14:58 01/31/24 14:39 01/31/24 14:39 01/31/24 14:00 01/31/24 13:08 01/31/24 13:00 01/31/24 12:00 01/31/24 12:00 01/31/24 12:00 01/31/24 11:51 01/31/24 11:00 01/31/24 11:00 01/31/24 10:00 01/31/24 09:47 01/31/24 09:47 01/31/24 09:47 40 01/31/24 09:00 01/31/24 09:00 Intake and Output 01/31/24 02/01/24 02/01/24 23:59 07:59 15:59 Output Total 530 / 1605 1180 / 1180 Balance -530 / -1353 -1180 / -1180 Output: Output, Urine Amount 0 / 0 Output, Urine Amount (Catheter) 530 / 1605 580 / 580 May 530 / 1605 580 / 580 Output, Gastric Drainage Amount 600 / 600 Left Nare 600 / 600 Other: Number of Unmeasured Voids 0 Weight 126.416 kg Patient Weight 02/01/24 23:59 Weight 126.416 kg Laboratory Results - last 24 hr 01/30/24 03:45: Cortisol 22.0 H 01/31/24 08:47: POC Glucose 81 01/31/24 11:34: Specimen Source vbg, O2 % 40%, ABG pH 7.36, ABG pCO2 47.3 H, ABG pO2 62.9 L, ABG HCO3 25.8, ABG Total CO2 27.3 H, ABG O2 Saturation 91, ABG Base Excess 0.3, Tidal Volume 22/14 01/31/24 12:05: Sodium 142, Potassium 5.6 H, Chloride 107, Carbon Dioxide 31 H, Anion Gap 9.6, BUN 112 H*, Creatinine 2.70 H, Estimated Creat Clear 18, Estimated GFR 22 L, Est GFR ( Amer) 27 L, Glucose 88, Calcium 8.7 02/01/24 06:05: WBC 6.6, RBC 2.65 L, Hgb 8.3 L, Hct 28.2 L, MCV 106.4 H, MCH 31.4 H, MCHC 29.5 L, RDW 16.8, Plt Count 165, MPV 9.7, Neut % (Auto) 79.2, Lymph % (Auto) 15.1, [place] % (Auto) 5.1, Eos % (Auto) 0.2, Baso % (Auto) 0.4, Neut # (Auto) 5.2, Lymph # (Auto) 1.0, [place] # (Auto) 0.3, Eos # (Auto) 0.0, Baso # (Auto) 0.0, Sodium 146 H, Potassium 5.2 H, Chloride 108 H, Carbon Dioxide 31 H, Anion Gap 12.2, BUN 108 H*, Creatinine 2.70 H, Estimated Creat Clear 18, Estimated GFR 22 L, Est GFR ( Amer) 27 L, Glucose 111 H D, Calcium 9.3, Magnesium 2.3, Total Bilirubin 0.5, AST 51, ALT 15, Alkaline Phosphatase 155 H, Total Protein 6.6, Albumin 3.7, Globulin 2.9, Albumin/Globulin Ratio 1.3 I & O for Labs for Last 24 Hours: Intake & Output 01/29/24 01/30/24 01/31/24 02/01/24 23:59 23:59 23:59 23:59 Intake Total 298.256 / 298.256 252 / 252 Output Total 355 / 355 1515 / 1605 1180 / 1180 Balance -56.744 / -56.744 -1263 / -1353 -1180 / -1180 Weight 128.548 kg 129.637 kg 126.416 kg Constitutional: Present moderate distress, obese, chronically ill appearing and somnolent Head: Present atraumatic and normocephalic ENT: Present normal exam Respiratory: Present accessory muscle use and distant breath sounds; Absent rhonchi, wheezes or crackles Comment:: On BiPAP Cardiac: Present Reg Rate and Rhythm GI: Present soft, distention and normal bowel sounds; Absent tenderness Rectal (male): Present deferred (male): Present normal inspection Extremities: Present normal inspection, full ROM and edema (2+ to his knee); Absent tenderness Skin: Present intact; Absent erythema Neuro: Present Resting Tremor, alert and moves all extremities Comment:: Tremor present Assessment and Plan *Assessment and plan (1) Respiratory failure with hypoxia and hypercapnia: Status: Acute Category: Medical Code(s): J96.91 - Respiratory failure, unspecified with hypoxia; J96.92 - Respiratory failure, unspecified with hypercapnia (2) Septic shock: Status: Acute Category: Medical Code(s): A41.9 - Sepsis, unspecified organism; R65.21 - Severe sepsis with septic shock (3) Hypothermia: Status: Resolved Category: Medical Code(s): T68.XXXA - Hypothermia, initial encounter (4) Hyperkalemia: Status: Acute Category: Medical Code(s): E87.5 - Hyperkalemia (5) Class 2 obesity: Status: Acute Category: Medical Code(s): E66.9 - Obesity, unspecified (6) CED (acute kidney injury): Status: Acute Category: Medical Code(s): N17.9 - Acute kidney failure, unspecified (7) Parkinsons disease: Status: Chronic Category: Medical Code(s): G20 - Parkinson's disease (8) Heart failure: Status: Acute Category: Medical Code(s): I50.9 - Heart failure, unspecified (9) Hypothyroid: Status: Chronic Category: Medical Code(s): E03.9 - Hypothyroidism, unspecified Plan 88-year-old male with history of Parkinson's who resides at a [facility]. Presented in septic shock with acute hypercapnic respiratory failure, hypothermia, no focal source for infection at this time but presumed infectious with UTI versus pneumonia versus abdominal infection. Presentation could also be likely to hypercapnia from confusion with his elevated BUN leading to hypothermia and hypotension. Discussed case with ER physician, request admission for ICU level care. Agree with admission. Medicine admitted for further management. Managed for over 48 hours on BiPAP with treatment of his hypotension and hypothermia along with concern for sepsis. Initiated on broad-spectrum antibiotics. Pulmonology was consulted to assist with care. Patient noted to have worsening renal failure. Given his progressing Parkinson's, multiorgan failure, and sepsis, family elected to proceed with hospice consult after much discussion. Discussed adjustments to medications. Patient switched to comfort meds. BiPAP discontinued, transition in 4 L nasal cannula oxygen. Comfort meds as follows: Morphine 2 mg every 1 hour as needed IV Ativan 0.5 mg IV every 2 hours as needed Glycopyrrolate 0.2 mg IV every 4 hours scheduled DNR/DNI
[2024-02-01] MEDS: PRAMIPEXOLE 1MG TAB 1.5 MG PO ×2 (08:51→12:11)
[2024-02-01] MEDS: ENOXAPARIN 30MG/0.3ML SYRINGE 30 MG SQ (08:51)
[2024-02-01] MEDS: CARBIDOPA/LEVODOPA 25/100MG TABLET 1 EACH PO ×2 (08:52→12:11)
[2024-02-01] MEDS: CEFEPIME HCL 2 GM in 0.9 % SODIUM CHLORIDE 100 ML IV (08:52)
[2024-02-01] MEDS: POLYETHYLENE GLYCOL 3350 17 GM PACKET PO (08:52)
[2024-02-01] MEDS: LEVOTHYROXINE 100MCG (0.1MG) TAB 200 MCG PO (08:52)
--- NOTE | 2024-02-01 09:54 | EXP.PULM.PN ---
Subjective *Date: 02/01/24 *Time: 10:56 Interval history: No acute respiratory vents overnight. Pulmonology Exam Inpatient Vital signs and Labs for Last 24 Hours: Temp Pulse Resp BP Pulse Ox O2 Del Method O2 Flow Rate 98.4 F 87 17 153/73 H 96 BiPAP 2 02/01/24 08:00 02/01/24 09:37 02/01/24 09:00 02/01/24 09:00 02/01/24 09:00 02/01/24 09:00 01/30/24 03:35 FiO2 30 02/01/24 09:37 Laboratory Results - last 24 hr 01/31/24 11:34: Specimen Source vbg, O2 % 40%, ABG pH 7.36, ABG pCO2 47.3 H, ABG pO2 62.9 L, ABG HCO3 25.8, ABG Total CO2 27.3 H, ABG O2 Saturation 91, ABG Base Excess 0.3, Tidal Volume 22/14 01/31/24 12:05: Sodium 142, Potassium 5.6 H, Chloride 107, Carbon Dioxide 31 H, Anion Gap 9.6, BUN 112 H*, Creatinine 2.70 H, Estimated Creat Clear 18, Estimated GFR 22 L, Est GFR ( Amer) 27 L, Glucose 88, Calcium 8.7 02/01/24 06:05: WBC 6.6, RBC 2.65 L, Hgb 8.3 L, Hct 28.2 L, MCV 106.4 H, MCH 31.4 H, MCHC 29.5 L, RDW 16.8, Plt Count 165, MPV 9.7, Neut % (Auto) 79.2, Lymph % (Auto) 15.1, Vermillion % (Auto) 5.1, Eos % (Auto) 0.2, Baso % (Auto) 0.4, Neut # (Auto) 5.2, Lymph # (Auto) 1.0, Vermillion # (Auto) 0.3, Eos # (Auto) 0.0, Baso # (Auto) 0.0, Sodium 146 H, Potassium 5.2 H, Chloride 108 H, Carbon Dioxide 31 H, Anion Gap 12.2, BUN 108 H*, Creatinine 2.70 H, Estimated Creat Clear 18, Estimated GFR 22 L, Est GFR ( Amer) 27 L, Glucose 111 H D, Calcium 9.3, Magnesium 2.3, Total Bilirubin 0.5, AST 51, ALT 15, Alkaline Phosphatase 155 H, Total Protein 6.6, Albumin 3.7, Globulin 2.9, Albumin/Globulin Ratio 1.3 Temp Pulse Resp BP Pulse Ox O2 Del Method O2 Flow Rate 92.4 F L 75 19 140/57 L 98 BiPAP 2 01/30/24 08:24 01/30/24 09:01 01/30/24 09:01 01/30/24 09:01 01/30/24 09:01 01/30/24 08:00 01/30/24 03:35 FiO2 45 01/30/24 03:59 Laboratory Results - last 24 hr 01/30/24 03:45: WBC 6.7, RBC 2.69 L, Hgb 8.6 L, Hct 30.0 L, MCV 111.3 H, MCH 31.9 H, MCHC 28.7 L, RDW 16.8, Plt Count 126 L, MPV 10.6 H, Neut % (Auto) 84.5 H, Lymph % (Auto) 8.9 L, Vermillion % (Auto) 3.5, Eos % (Auto) 2.6, Baso % (Auto) 0.5, Neut # (Auto) 5.7, Lymph # (Auto) 0.6 L, Vermillion # (Auto) 0.2, Eos # (Auto) 0.2, Baso # (Auto) 0.0, Sodium 142, Potassium 5.3 H, Chloride 104, Carbon Dioxide 33 H, Anion Gap 10.3, BUN 100 H, Creatinine 3.00 H, Estimated Creat Clear 28, Estimated GFR 20 L, Est GFR ( Amer) 24 L, Glucose 128 H, Lactate 1.6, Calcium 8.5, Total Bilirubin 0.3, AST 55, ALT 12, Alkaline Phosphatase 161 H, Ammonia 10, Troponin I 0.02, NT-Pro-B Natriuret Pep 2860 H, Total Protein 6.3, Albumin 3.6, Globulin 2.7, Albumin/Globulin Ratio 1.3, TSH 3.07, Thyroxine (T4) 7.8, Salicylates < 1.0 L, Acetaminophen < 10 L, Acetone Level None detected 01/30/24 03:50: Urine Color Yellow, Urine Appearance Clear, Urine pH 5.5, Ur Specific Willis 1.020, Urine Protein Negative, Urine Glucose (UA) Negative, Urine Ketones Negative, Urine Blood Negative, Urine Nitrate Negative, Urine Bilirubin Negative, Urine Urobilinogen 0.2, Ur Leukocyte Esterase Negative, Urine WBC Occasional, Urine Bacteria Trace 01/30/24 03:51: VBG pH 7.20 L, VBG pCO2 74.1 H, VBG pO2 64.1 H, VBG HCO3 28.2, VBG Total CO2 30.5 H, VBG O2 Saturation 87.7 H, VBG Base Excess 0.1, VBG Lactic Acid 2.2 H 01/30/24 03:52: SARS-CoV-2 (PCR) Not detected, Influenza A Untype (PCR) Not detected, Influenza Type B (PCR) Not detected 01/30/24 04:02: Urine Opiates Screen Negative, Urine Methadone Screen Negative, Ur Barbituates Screen Negative, Ur Phencyclidine Scrn Negative, Ur Amphetamines Screen Negative, U Benzodiazepines Scrn Negative, Urine Cocaine Screen Negative, U Marijuana (THC) Screen Negative 01/30/24 07:17: Specimen Source Left radial, O2 % 45%, ABG pH 7.16 L*, ABG pCO2 77.4 H, ABG pO2 77.3 L, ABG HCO3 27.0 H, ABG Total CO2 29.4 H, ABG O2 Saturation 93, ABG Base Excess -1.6, Elver Test Acceptable 01/30/24 07:30: Troponin I 0.03 01/30/24 08:17: Lactate 1.1 I & O for Labs for Last 24 Hours: Intake & Output 01/29/24 01/30/24 01/31/24 02/01/24 23:59 23:59 23:59 23:59 Intake Total 298.256 / 298.256 252 / 252 410 / 410 Output Total 355 / 355 1515 / 1605 1315 / 1315 Balance -56.744 / -56.744 -1263 / -1353 -905 / -905 Weight 283 lb 6.4 oz 285 lb 12.8 oz 278 lb 11.2 oz Intake & Output 01/27/24 01/28/24 01/29/24 01/30/24 23:59 23:59 23:59 23:59 Intake Total 29.00 / 29.00 Balance 29.00 / . Weight 257 lb Constitutional: Present severe distress Head: Present normocephalic and atraumatic Neck: Present normal inspection and full ROM Respiratory: Present respiratory distress, wheezes and diminished air movement Cardiac: Present Tachycardia and radial pulses present; Absent S1/S2 GI: Present distention and rigidity Skin: Present lesions; Absent intact, cyanosis or jaundice Comment:: LE erythema Neuro: Absent alert, awake or oriented x 3 Extremities: Present edema; Absent normal inspection, clubbing or cyanosis Psychiatric: Present unable to assess Assessment and Plan *Assessment and plan (1) Respiratory failure with hypoxia and hypercapnia: Status: Acute Category: Medical Code(s): J96.91 - Respiratory failure, unspecified with hypoxia; J96.92 - Respiratory failure, unspecified with hypercapnia Plan Mr. Haider is a 88-year-old prison resident presented to the ER with worsening respiratory suspect external altered mentation and pulmonary was called for further evaluation and management. His other complaints include hypothyroidism on levothyroxine 225mcg daily Parkinson's on Levodopa-carbidopa and pramiprexole, hypertension and CHF. He is also nebulization therapies on as-needed basis. No evidence of leukocytosis. Chest x-ray on admission stable from prior. Continue to left lower lobe atelectasis. Hemodynamically unstable upon admission needing pressor support, on Levophed 12 mcg. Hypercarbic respiratory failure currently on BiPAP therapy. Lower extremity Doppler negative for DVT Patient hypercarbic respiratory failure eventually improved on BiPAP therapy however his mentation showed no significant improvement along with worsening uremia and renal failure. In the setting of DNR/DNI the plan was made to continue BiPAP therapy for ventilation support given pending improvement in uremia and his mental status. Hemodynamic status improved, not needing pressors. Afebrile. Interval update: No acute respiratory events overnight. Continued to remain on BiPAP. O2 saturating 96% this morning. No significant improvement in mentation. Plan: -F/u VBG -Continue current antibiotics including Vanco and cefepime pending blood cultures. Renal dosing of medications -Continue noninvasive ventilation currently with BiPAP at 14/22, RR-22 and FiO2 0f 30% pending improvement in uremia and altered mentation -DuoNebs every 4 hours on a scheduled basis # Thank you for involving pulmonary in this patient care. Will continue to follow.
[2024-02-01 10:43] LABS: Lactate Venous 1.7 mmol/L (0.4-2.0)
[2024-02-01 10:45] LABS: Lactate Venous 1.7 mmol/L (0.4-2.0); VBG Base Excess 3.7 mmol/L (-2.4-2.3); VBG HCO3 28.7 mmol/L (23-30); VBG Oxygen Saturation 92.5 % (50-70); VBG PCO2 49.1 mmol/L (35-51); VBG PH 7.39 mmol/L (7.31-7.41); VBG PO2 69.4 mmol/L (28-40); VBG Total CO2 30.2 mmol/L (23-27)
--- NOTE | 2024-02-01 15:57 | PC.NURSE ---
SOON HOSPICE MEDS ORDERED, WILL GIVE PT MEDS AND THEN REMOVE BIPAP, NGT, ETC AND MOVE PT TO ROOM 209, FAMILY AT BEDSIDE
[2024-02-01] MEDS: MORPHINE 2MG/ML SYRINGE 2 MG IV ×2 (16:19→22:19)
[2024-02-01] MEDS: GLYCOPYRROLATE 0.2 MG/ML 1ML VIAL 0.200000000000000011 MG IV ×2 (16:19→20:10)
[2024-02-01] MEDS: LORazepam 2MG/ML VIAL 0.5 MG IV (16:20)
--- NOTE | 2024-02-01 17:13 | PC.NURSE ---
REMOVED BIPAP PER ORDER FROM MD PATTERSON, PLACED PT ON 3LNC, NGT REMOVED, MOVED PT TO ROOM 209 FROM 216, TELE BOX PLACED ON PT TO MONITOR HR AND RHYTHM, FAMILY AT BEDSIDE, CALL LIGHT WITHIN REACH
[2024-02-02] VITALS (9 sets, daily range): BP systolic 152–157; BP diastolic 83–88; PULSE 76–88; RESP 14–18; TEMP 36.7–37; O2SAT 91–96; BMI 41.3; BMI 41.1
[2024-02-02] MEDS: GLYCOPYRROLATE 0.2 MG/ML 1ML VIAL 0.200000000000000011 MG IV ×10 (00:12→23:51)
[2024-02-02] MEDS: ALBUTEROL 0.083% 2.5 MG/3 ML NEB IH ×6 (01:55→22:44)
--- NOTE | 2024-02-02 05:05 | PC.NURSE ---
pt given hospice meds per JAN. pt turned and positioned q2 hours per order. pt has had no complaints throughout shift and has been resting with eyes closed all shift.
--- NOTE | 2024-02-02 07:28 | P.PN_ITS ---
Subjective *Date: 02/02/24 *Time: 11:36 Interval history: Comfortable on exam. On 3 L nasal cannula. No meaningful response to exam. Breathing somewhat labored and rhonchorous. Medical Exam Vital signs and Labs for Last 24 Hours: Vital Signs Temp Pulse Pulse Resp BP Pulse Ox O2 Del Method 02/02/24 06:46 83 02/02/24 06:46 83 02/02/24 06:46 91 L Nasal Cannula 02/02/24 06:45 Nasal Cannula 02/02/24 05:00 Nasal Cannula 02/02/24 02:48 Nasal Cannula 02/02/24 02:02 82 02/02/24 02:02 85 02/02/24 01:00 Nasal Cannula 02/01/24 23:00 Nasal Cannula 02/01/24 22:48 88 02/01/24 22:48 88 02/01/24 20:58 Nasal Cannula 02/01/24 20:00 90 02/01/24 20:00 Nasal Cannula 02/01/24 19:40 98.3 F 85 18 134/69 95 Nasal Cannula 02/01/24 18:28 Nasal Cannula 02/01/24 18:09 Nasal Cannula 02/01/24 17:17 Nasal Cannula 02/01/24 16:00 85 02/01/24 15:00 BiPAP 02/01/24 15:00 83 16 168/85 H 97 BiPAP 02/01/24 14:00 87 18 95 BiPAP 02/01/24 13:44 88 02/01/24 13:44 98 H 02/01/24 13:44 02/01/24 13:00 93 H 16 162/74 H 96 BiPAP 02/01/24 13:00 BiPAP 02/01/24 12:00 90 02/01/24 12:00 100 BiPAP 02/01/24 12:00 86 22 181/101 H 97 BiPAP 02/01/24 11:54 98.3 F 02/01/24 11:00 91 H 18 161/87 H 98 BiPAP 02/01/24 11:00 BiPAP 02/01/24 10:00 84 16 138/68 98 BiPAP 02/01/24 09:37 87 02/01/24 09:37 79 02/01/24 09:37 02/01/24 09:00 BiPAP 03/28/24 09:00 83 17 153/73 H 96 BiPAP 02/01/24 08:00 85 02/01/24 08:00 98.4 F 02/01/24 08:00 83 15 156/71 H 95 BiPAP 02/01/24 08:00 95 BiPAP O2 Flow Rate FiO2 02/02/24 06:46 02/02/24 06:46 02/02/24 06:46 3 02/02/24 06:45 3 02/02/24 05:00 3 02/02/24 02:48 3 02/02/24 02:02 02/02/24 02:02 02/02/24 01:00 3 02/01/24 23:00 3 02/01/24 22:48 02/01/24 22:48 02/01/24 20:58 3 02/01/24 20:00 02/01/24 20:00 3 02/01/24 19:40 3 02/01/24 18:28 3 02/01/24 18:09 3 02/01/24 17:17 3 02/01/24 16:00 02/01/24 15:00 02/01/24 15:00 02/01/24 14:00 02/01/24 13:44 02/01/24 13:44 02/01/24 13:44 30 02/01/24 13:00 02/01/24 13:00 02/01/24 12:00 02/01/24 12:00 02/01/24 12:00 02/01/24 11:54 02/01/24 11:00 02/01/24 11:00 02/01/24 10:00 30 02/01/24 09:37 02/01/24 09:37 02/01/24 09:37 30 02/01/24 09:00 02/01/24 09:00 02/01/24 08:00 02/01/24 08:00 02/01/24 08:00 02/01/24 08:00 Intake and Output 02/01/24 02/01/24 02/02/24 15:59 23:59 07:59 Intake Total 510 / 510 0 / 0 Output Total 410 / 2790 1200 / 2790 500 / 500 Balance 100 / -2280 -1200 / -2280 -500 / -500 Intake: Intake, Oral Amount 0 / 0 Intake, Tube Irrigant Amount 160 / 160 Intake, Total IV Amount 350 / 350 Cefepime HCl 2 gm In 0.9 % 100 / 100 Sodium Chloride 100 ml @ 200 mls/hr IV Q12H [facility] Rx#:[id number] Vancomycin HCl 2,000 mg In 0.9 250 / 250 % Sodium Chloride 250 ml @ 125 mls/hr IV Q48H [facility] Rx#:[id number] Output: Output, Urine Amount 0 / 900 900 / 900 500 / 500 Output, Urine Amount (Catheter) 410 / 1290 300 / 1290 May 410 / 1290 300 / 1290 Other: Number of Unmeasured Voids 0 0 0 Weight 126.416 kg Patient Weight 02/02/24 23:59 Weight 126.416 kg Laboratory Results - last 24 hr 02/01/24 10:22: VBG Lactic Acid 1.7 02/01/24 10:39: VBG pH 7.39, VBG pCO2 49.1, VBG pO2 69.4 H, VBG HCO3 28.7, VBG Total CO2 30.2 H, VBG O2 Saturation 92.5 H, VBG Base Excess 3.7 H, VBG Lactic Acid 1.7 I & O for Labs for Last 24 Hours: Intake & Output 01/30/24 01/31/24 02/01/24 02/02/24 23:59 23:59 23:59 23:59 Intake Total 298.256 / 298.256 252 / 252 510 / 510 0 / 0 Output Total 355 / 355 1515 / 1605 2790 / 2790 500 / 500 Balance -56.744 / -56.744 -1263 / -1353 -2280 / -2280 -500 / -500 Weight 128.548 kg 129.637 kg 126.416 kg 126.416 kg Microbiology Reports for the Last 24 Hours: Microbiology 01/30/24 03:45 Blood Blood Culture - Preliminary 01/30/24 03:45 Blood Blood Culture - Preliminary Constitutional: Present moderate distress, obese, chronically ill appearing and somnolent Head: Present atraumatic and normocephalic ENT: Present normal exam Respiratory: Present accessory muscle use and distant breath sounds; Absent rhonchi, wheezes or crackles Comment:: On BiPAP Cardiac: Present Reg Rate and Rhythm GI: Present soft, distention and normal bowel sounds; Absent tenderness Rectal (male): Present deferred (male): Present normal inspection Extremities: Present normal inspection, full ROM and edema (2+ to his knee); Absent tenderness Skin: Present intact; Absent erythema Neuro: Present Resting Tremor and moves all extremities Comment:: Tremor present Assessment and Plan *Assessment and plan (1) Respiratory failure with hypoxia and hypercapnia: Status: Acute Category: Medical Code(s): J96.91 - Respiratory failure, unspecified with hypoxia; J96.92 - Respiratory failure, unspecified with hypercapnia (2) Septic shock: Status: Acute Category: Medical Code(s): A41.9 - Sepsis, unspecified organism; R65.21 - Severe sepsis with septic shock (3) Hypothermia: Status: Resolved Category: Medical Code(s): T68.XXXA - Hypothermia, initial encounter (4) Hyperkalemia: Status: Acute Category: Medical Code(s): E87.5 - Hyperkalemia (5) Class 2 obesity: Status: Acute Category: Medical Code(s): E66.9 - Obesity, unspecified (6) CED (acute kidney injury): Status: Acute Category: Medical Code(s): N17.9 - Acute kidney failure, unspecified (7) Parkinsons disease: Status: Chronic Category: Medical Code(s): G20 - Parkinson's disease (8) Heart failure: Status: Acute Category: Medical Code(s): I50.9 - Heart failure, unspecified (9) Hypothyroid: Status: Chronic Category: Medical Code(s): E03.9 - Hypothyroidism, unspecified Plan 88-year-old male with history of Parkinson's who resides at a assisted. Presented in septic shock with acute hypercapnic respiratory failure, hypothermia, no focal source for infection at this time but presumed infectious with UTI versus pneumonia versus abdominal infection. Presentation could also be likely to hypercapnia from confusion with his elevated BUN leading to hypothermia and hypotension. Discussed case with ER physician, request admission for ICU level care. Agree with admission. Medicine admitted for further management. Managed for over 48 hours on BiPAP with treatment of his hypotension and hypothermia along with concern for sepsis. Initiated on broad- spectrum antibiotics. Pulmonology was consulted to assist with care. Patient noted to have worsening renal failure. Given his progressing Parkinson's, multiorgan failure, and sepsis, family elected to proceed with hospice consult after much discussion. Admitted to hospice care on 01/31. Adjusting medications daily to focus on comfort and symptom management. On 3 L nasal cannula oxygen. Will not escalate oxygen. Comfort feeds if patient responsive. Comfort meds as follows: Morphine 2 mg every 1 hour as needed IV, goal respiratory rate between 10 and 16 Ativan 0.5 mg IV every 2 hours as needed for anxiety Glycopyrrolate 0.2 mg IV every 2 hours scheduled DNR/DNI
[2024-02-02] MEDS: MORPHINE 2MG/ML SYRINGE 2 MG IV (10:51)
--- NOTE | 2024-02-02 18:12 | PC.NURSE ---
Pt has rested comfortably in bed this shift. Required one dose of PRN pain medication this morning. No needs stated by family members.
[2024-02-03] VITALS (9 sets, daily range): BP systolic 144–155; BP diastolic 74–84; PULSE 85–93; RESP 14–17; TEMP 36.8–37.1; O2SAT 3–94; BMI 39.4
[2024-02-03] MEDS: GLYCOPYRROLATE 0.2 MG/ML 1ML VIAL 0.200000000000000011 MG IV ×12 (01:50→23:45)
[2024-02-03] MEDS: ALBUTEROL 0.083% 2.5 MG/3 ML NEB IH ×6 (02:36→22:08)
--- NOTE | 2024-02-03 07:00 | PC.NURSE ---
HOSPICE/COMFORT CARE. PATIENT TURNED AND REPOSITIONED Q 2 HRS. HOB UP 35 DEGREES. 02 AT 3LNC. RECEIVING IVP ROBINAL 0.2 MG EVERY 2 HRS ORDERED. OPENS EYES BRIEFLY WHEN TURNED . NON-VERBAL.
[2024-02-03] MEDS: MORPHINE 2MG/ML SYRINGE 2 MG IV ×2 (07:50→12:13)
[2024-02-03] MEDS: LORazepam 2MG/ML VIAL 0.5 MG IV (09:47)
--- NOTE | 2024-02-03 11:12 | PC.NURSE ---
DRESSINGS CHANGED TO BLE SCABBED AREAS. 4X4 WERE ADHERED TO SCABS AND SOME BLEEDING WAS NOTED WITH DRESSING CHANGE. DRESSING WAS REPLACED WITH VASELINE GAUZE, 4X4, AND KERLEX. TOLERATED DRESSING CHANGE AND BATH WELL.
--- NOTE | 2024-02-03 15:10 | P.PN_ITS ---
Subjective *Date: 02/03/24 *Time: 15:10 Interval history: not following commands, appears comfortable under hospice care Exam Data for Last 24 hours Vital signs and Labs for Last 24 Hours: Temp Pulse Resp BP Pulse Ox O2 Del Method O2 Flow Rate 98.3 F 87 14 155/84 H 94 L Nasal Cannula 3 02/03/24 08:00 02/03/24 14:07 02/03/24 08:00 02/03/24 08:00 02/03/24 14:07 02/03/24 14:07 02/03/24 14:07 FiO2 30 02/01/24 13:44 I & O for Last 24 hours: Intake & Output 01/31/24 02/01/24 02/02/24 02/03/24 23:59 23:59 23:59 23:59 Intake Total 252 / 252 510 / 510 0 / 0 0 / 0 Output Total 1515 / 1605 2790 / 2790 500 / 500 2950 / 2950 Balance -1263 / -1353 -2280 / -2280 -500 / -500 -2950 / -2950 Weight 129.637 kg 126.416 kg 126 kg 120.656 kg Microbiology Reports for the Last 24 Hours: Microbiology 01/30/24 03:45 Blood Blood Culture - Preliminary 01/30/24 03:45 Blood Blood Culture - Preliminary Constitutional Comments: I did not perform physical exam due to being under hospice care Assessment and Plan *Assessment and plan (1) Respiratory failure with hypoxia and hypercapnia: Status: Acute Category: Medical Code(s): J96.91 - Respiratory failure, unspecified with hypoxia; J96.92 - Respiratory failure, unspecified with hypercapnia (2) Septic shock: Status: Acute Category: Medical Code(s): A41.9 - Sepsis, unspecified organism; R65.21 - Severe sepsis with septic shock (3) Hypothermia: Status: Resolved Category: Medical Code(s): T68.XXXA - Hypothermia, initial encounter (4) Hyperkalemia: Status: Acute Category: Medical Code(s): E87.5 - Hyperkalemia (5) Class 2 obesity: Status: Acute Category: Medical Code(s): E66.9 - Obesity, unspecified (6) CED (acute kidney injury): Status: Acute Category: Medical Code(s): N17.9 - Acute kidney failure, unspecified (7) Parkinsons disease: Status: Chronic Category: Medical Code(s): G20 - Parkinson's disease (8) Heart failure: Status: Acute Category: Medical Code(s): I50.9 - Heart failure, unspecified (9) Hypothyroid: Status: Chronic Category: Medical Code(s): E03.9 - Hypothyroidism, unspecified Plan continue Hospice care, discussed with RN and appraisal analyst
--- NOTE | 2024-02-03 18:14 | PC.NURSE ---
PT HAS RESTED WELL TODAY MEDICATED PER MAR FOR SECRETIONS, PAIN, AND AGITATION. NO NEEDS STATED BY FAMILY. TURNED Q2HRS.
[2024-02-04] VITALS (10 sets, daily range): BP systolic 152–193; BP diastolic 87–97; PULSE 85–117; RESP 22–24; TEMP 37.4–39.1; O2SAT 85–93; BMI 39.4
[2024-02-04] MEDS: ALBUTEROL 0.083% 2.5 MG/3 ML NEB IH ×6 (01:03→22:36)
[2024-02-04] MEDS: GLYCOPYRROLATE 0.2 MG/ML 1ML VIAL 0.200000000000000011 MG IV ×12 (01:46→23:45)
--- NOTE | 2024-02-04 06:59 | PC.NURSE ---
PATIENT IS COMFORT CARE ONLY. HOSPICE. LOCALIZES TO PAINFUL STIMULI. GENERALIZED EDEMA WITH 3 + PITTING IN ABDOMEN AND BLEs. HAD RHONCHI BILAT. RECEIVING ROBINUL 0.2 MG IV EVERY 2 HOURS. F/C TO BSD, URINE CLEAR YELLOW. DRSGS TO BILAT LEs C/D/I. TURNED AND REPOSITIONED Q 2 HRS. HOB ELEVATED 40 DEGREES. DOES NOT APPEAR TO BR IN PAIN.
--- NOTE | 2024-02-04 11:38 | EXP.PN ---
Subjective *Date: 02/04/24 *Time: 11:38 Interval history: not following commands, appears comfortable under hospice care Exam Data for Last 24 hours Vital signs and Labs for Last 24 Hours: Temp Pulse Resp BP Pulse Ox O2 Del Method O2 Flow Rate 99.4 F 113 H 22 193/97 H 93 L Nasal Cannula 3 02/04/24 08:00 02/04/24 10:37 02/04/24 08:00 02/04/24 08:00 02/04/24 08:00 02/04/24 08:00 02/04/24 08:00 FiO2 30 02/01/24 13:44 I & O for Last 24 hours: Intake & Output 02/01/24 02/02/24 02/03/24 02/04/24 23:59 23:59 23:59 23:59 Intake Total 510 / 510 0 / 0 0 / 0 Output Total 2790 / 2790 500 / 500 3125 / 3125 1000 / 1000 Balance -2280 / -2280 -500 / -500 -3125 / -3125 -1000 / -1000 Weight 126.416 kg 126 kg 120.656 kg 120.656 kg Constitutional Comments: I did not perform physical exam due to being under hospice care Assessment and Plan *Assessment and plan (1) Respiratory failure with hypoxia and hypercapnia: Status: Acute Category: Medical Code(s): J96.91 - Respiratory failure, unspecified with hypoxia; J96.92 - Respiratory failure, unspecified with hypercapnia (2) Septic shock: Status: Acute Category: Medical Code(s): A41.9 - Sepsis, unspecified organism; R65.21 - Severe sepsis with septic shock (3) Hypothermia: Status: Resolved Category: Medical Code(s): T68.XXXA - Hypothermia, initial encounter (4) Hyperkalemia: Status: Acute Category: Medical Code(s): E87.5 - Hyperkalemia (5) Class 2 obesity: Status: Acute Category: Medical Code(s): E66.9 - Obesity, unspecified (6) CED (acute kidney injury): Status: Acute Category: Medical Code(s): N17.9 - Acute kidney failure, unspecified (7) Parkinsons disease: Status: Chronic Category: Medical Code(s): G20 - Parkinson's disease (8) Heart failure: Status: Acute Category: Medical Code(s): I50.9 - Heart failure, unspecified (9) Hypothyroid: Status: Chronic Category: Medical Code(s): E03.9 - Hypothyroidism, unspecified Plan continue Hospice care, discussed with RN and patient services coordinator
[2024-02-04] MEDS: ACETAMINOPHEN 650MG SUPPOSITORY 650 MG RC (16:33)
--- NOTE | 2024-02-04 18:18 | PC.NURSE ---
Patient has been resting with eyes closed this shift. Patient does not hae any excess secretions this shift. Patient had a fever of 101.5 and tylenol was administered.
[2024-02-04] MEDS: MORPHINE 2MG/ML SYRINGE 2 MG IV ×3 (18:41→23:45)
[2024-02-05] VITALS: TEMP 37.8
[2024-02-05] MEDS: ALBUTEROL 0.083% 2.5 MG/3 ML NEB IH ×3 (02:02→09:20)
[2024-02-05] MEDS: MORPHINE 2MG/ML SYRINGE 2 MG IV ×6 (02:08→13:35)
[2024-02-05] MEDS: GLYCOPYRROLATE 0.2 MG/ML 1ML VIAL 0.200000000000000011 MG IV ×7 (02:08→13:35)
[2024-02-05 04:00] VITALS: TEMP 37.1; BMI 39.4
--- NOTE | 2024-02-05 05:48 | PC.NURSE ---
Pt has been resting with eyes closed throughout shift. PRN medication given for pain. Q2 turn, oral care, and heels elevated off of bed. No excess secretions noted. 3L NC applied for comfort. May in place and draining.
[2024-02-05 06:34] VITALS: PULSE 91; PULSE 93
[2024-02-05 07:46] VITALS: BP 161/78; PULSE 89; RESP 17; TEMP 36.6; O2SAT 98
[2024-02-05 09:21] VITALS: PULSE 73; PULSE 77
--- NOTE | 2024-02-05 09:36 | EXP.PN ---
Subjective *Date: 02/05/24 *Time: 09:36 Interval history: not following commands, appears comfortable under hospice care Exam Data for Last 24 hours Vital signs and Labs for Last 24 Hours: Temp Pulse Resp BP Pulse Ox O2 Del Method O2 Flow Rate 98 F 77 17 161/78 H 98 Nasal Cannula 3 02/05/24 07:46 02/05/24 09:21 02/05/24 07:46 02/05/24 07:46 02/05/24 07:46 02/05/24 07:59 02/05/24 07:59 FiO2 30 02/01/24 13:44 I & O for Last 24 hours: Intake & Output 02/02/24 02/03/24 02/04/24 02/05/24 23:59 23:59 23:59 23:59 Intake Total 0 / 0 0 / 0 Output Total 500 / 500 3125 / 3125 2400 / 2400 800 / 800 Balance -500 / -500 -3125 / -3125 -2400 / -2400 -800 / -800 Weight 126 kg 120.656 kg 120.656 kg 120.7 kg Constitutional Comments: I did not perform physical exam due to being under hospice care Assessment and Plan *Assessment and plan (1) Respiratory failure with hypoxia and hypercapnia: Status: Acute Category: Medical Code(s): J96.91 - Respiratory failure, unspecified with hypoxia; J96.92 - Respiratory failure, unspecified with hypercapnia (2) Septic shock: Status: Acute Category: Medical Code(s): A41.9 - Sepsis, unspecified organism; R65.21 - Severe sepsis with septic shock (3) Hypothermia: Status: Resolved Category: Medical Code(s): T68.XXXA - Hypothermia, initial encounter (4) Hyperkalemia: Status: Acute Category: Medical Code(s): E87.5 - Hyperkalemia (5) Class 2 obesity: Status: Acute Category: Medical Code(s): E66.9 - Obesity, unspecified (6) CED (acute kidney injury): Status: Acute Category: Medical Code(s): N17.9 - Acute kidney failure, unspecified (7) Parkinsons disease: Status: Chronic Category: Medical Code(s): G20 - Parkinson's disease (8) Heart failure: Status: Acute Category: Medical Code(s): I50.9 - Heart failure, unspecified (9) Hypothyroid: Status: Chronic Category: Medical Code(s): E03.9 - Hypothyroidism, unspecified Plan continue Hospice care, discussed with RN and sole leveler machine
--- NOTE | 2024-02-05 12:16 | P.DS_ITS ---
General Admission date:: 01/30/24 Discharge date: 02/05/24 HPI HPI HPI: Mr. Haider is an 88-year-old male with history of obesity, CKD, hypertension, Parkinson's. He is a residential resident who presented with altered mental status. There was concern for worsening kidney dysfunction at his residential and the patient was not acting normally. He was brought to the ER via EMS for further evaluation. Patient has reportedly been less active over the past couple days. Unable to obtain history from patient. Obtained history per this note from chart and ER documentation. Son was at bedside on presentation unable to give history of patient's decline over the past few days. Reportedly had a more acute change a few hours prior to arriving at the ER. Was moaning to loud verbal stimuli and would respond with eye-opening to physical stimuli. Frankly altered however with GCS of 7. Initial workup in the ER showed patient was hypothermic, hypotensive, and renal failure with BUN of 100 and creatinine of 3. Had hypercarbia. Given patient's CODE STATUS of DNR/DNI, was initiated on BiPAP, broad-spectrum antibiotics, Levophed, and Dewayne hugger for slow rewarming. On my evaluation, patient has some improved spontaneous movement. Temperature is improving to 92. Levophed at 8 with MAP greater than 65. Pulling volumes of 4-500 on BiPAP. Hospital Course Hospital Course Hospital Course: 88-year-old male with history of Parkinson's who resides at a residential. Presented in septic shock with acute hypercapnic respiratory failure, hypothermia, no focal source for infection at this time but presumed infectious with UTI versus pneumonia versus abdominal infection. Presentation could also be likely to hypercapnia from confusion with his elevated BUN leading to hypothermia and hypotension. Discussed case with ER physician, request admission for ICU level care. Agree with admission. Medicine admitted for further management. Managed for over 48 hours on BiPAP with treatment of his hypotension and hypothermia along with concern for sepsis. Initiated on broad- spectrum antibiotics. Pulmonology was consulted to assist with care. Patient noted to have worsening renal failure. Given his progressing Parkinson's, multiorgan failure, and sepsis, family elected to proceed with hospice consult after much discussion. Admitted to hospice care on 01/31. Adjusting medications daily to focus on comfort and symptom management. On 3 L nasal cannula oxygen. Will not escalate oxygen. Comfort feeds if patient responsive Patient discharged under hospice care to [facility] Exam Data for Last 24 hours Vital signs and Labs for Last 24 Hours: Temp Pulse Resp BP Pulse Ox O2 Del Method O2 Flow Rate 98 F 77 17 161/78 H 98 Nasal Cannula 2 02/05/24 07:46 02/05/24 09:21 02/05/24 07:46 02/05/24 07:46 02/05/24 07:46 02/05/24 11:00 02/05/24 11:00 FiO2 30 02/01/24 13:44 I & O for Last 24 hours: Intake & Output 02/02/24 02/03/24 02/04/24 02/05/24 23:59 23:59 23:59 23:59 Intake Total 0 / 0 0 / 0 Output Total 500 / 500 3125 / 3125 2400 / 2400 800 / 800 Balance -500 / -500 -3125 / -3125 -2400 / -2400 -800 / -800 Weight 126 kg 120.656 kg 120.656 kg 120.7 kg Results Data Completed and Pending Labs on day of discharge: Preliminary micro results at discharge 01/30/24 03:45 Blood Culture - Preliminary Blood 01/30/24 03:45 Blood Culture - Preliminary Blood DS: Diagnosis Discharge Diagnosis (1) Respiratory failure with hypoxia and hypercapnia: Status: Acute Code(s): J96.91 - Respiratory failure, unspecified with hypoxia; J96.92 - Respiratory failure, unspecified with hypercapnia (2) Septic shock: Status: Acute Code(s): A41.9 - Sepsis, unspecified organism; R65.21 - Severe sepsis with septic shock (3) Hypothermia: Status: Resolved Code(s): T68.XXXA - Hypothermia, initial encounter (4) Hyperkalemia: Status: Acute Code(s): E87.5 - Hyperkalemia (5) Class 2 obesity: Status: Acute Code(s): E66.9 - Obesity, unspecified (6) CED (acute kidney injury): Status: Acute Code(s): N17.9 - Acute kidney failure, unspecified (7) Parkinsons disease: Status: Chronic Code(s): G20 - Parkinson's disease (8) Heart failure: Status: Acute Code(s): I50.9 - Heart failure, unspecified (9) Hypothyroid: Status: Chronic Code(s): E03.9 - Hypothyroidism, unspecified Meds Home Medications and Allergies Home Medications Medication Instructions Recorded Confirmed Type acetaminophen 325 mg tablet 325 mg PO QID 01/30/24 01/30/24 History allopurinol 100 mg tablet 100 mg PO DAILY 01/30/24 01/30/24 History aspirin 81 mg tablet,delayed 81 mg PO DAILY 01/30/24 01/30/24 History release calcium carbonate 250 mg-vitamin 1 tab PO BID 01/30/24 01/30/24 History D3 3.125 mcg (125 unit) tablet (Oyster Shell Calcium-Vitamin D3) carbidopa 25 mg-levodopa 100 mg 1 tab PO TID 01/30/24 01/30/24 History tablet cholecalciferol (vitamin D3) 25 25 mcg PO DAILY 01/30/24 01/30/24 History mcg (1,000 unit) capsule citalopram 20 mg tablet 20 mg PO DAILY 01/30/24 01/30/24 History furosemide 40 mg tablet 40 mg PO DAILY 01/30/24 01/30/24 History hydrocortisone 1 % topical cream 1 applic topical DAILYP PRN Skin 01/30/24 01/30/24 History Condition ipratropium 0.5 mg-albuterol 3 mg 3 ml inhalation DAILYP PRN 01/30/24 01/30/24 History (2.5 mg base)/3 mL nebulization Shortness Of Breath Or Wheezing soln levothyroxine 200 mcg tablet 200 mcg PO DAILY 01/30/24 01/30/24 History levothyroxine 25 mcg tablet 25 mcg PO DAILY 01/30/24 01/30/24 History losartan 50 mg tablet 50 mg PO BID 01/30/24 01/30/24 History multivitamin-ferrous 1 tab PO DAILY 01/30/24 01/30/24 History fumarate-folic acid 18 mg-400 mcg tablet (Multi-Day with Iron) omega 3-dha 200 mg-epa 300 mg-fish 2 cap PO DAILY 01/30/24 01/30/24 History oil 1,000 mg capsule omeprazole 20 mg capsule,delayed 20 mg PO DAILY 01/30/24 01/30/24 History release polyethylene glycol 3350 17 gram 17 g PO DAILY 01/30/24 01/30/24 History oral powder packet (Miralax) polysaccharide iron complex 150 mg 150 mg PO DAILY 01/30/24 01/30/24 History iron capsule (Ferrex) pramipexole 1.5 mg tablet 1.5 mg PO TID 01/30/24 01/30/24 History pravastatin 20 mg tablet 20 mg PO TUTH 01/30/24 01/30/24 History silver sulfadiazine 1 % topical 1 applic topical DAILYP PRN Skin 01/30/24 01/30/24 History cream Condition terazosin 2 mg capsule 2 mg PO HS 01/30/24 01/30/24 History trazodone 50 mg tablet 50 mg PO HS 01/30/24 01/30/24 History New Prescriptions to Start Prescriptions: Allergies Allergy/AdvReac Type Severity Reaction Status Date / Time No Known Allergies Allergy Verified 09/02/21 14:14 Discharge Plan Disposition Patient Disposition: Hospice - Medical Facility Condition: Fair Discharge Order Discharge Orders: Discharge Order (Routine); Ordered 02/05/24 Ordered By: Eliana Amado Follow up Plan Prescriptions/Medication Reconciliation: Continued losartan 50 mg tablet 50 mg PO BID furosemide 40 mg tablet 40 mg PO DAILY silver sulfadiazine 1 % cream 1 applic TOPICAL DAILYP PRN (Reason: Skin Condition) ipratropium-albuterol 0.5 mg-3 mg(2.5 mg base)/3 mL solution for nebulization 3 ml INHALATION DAILYP PRN (Reason: Shortness Of Breath Or Wheezing) trazodone 50 mg tablet 50 mg PO HS allopurinol 100 mg tablet 100 mg PO DAILY citalopram 20 mg tablet 20 mg PO DAILY terazosin 2 mg capsule 2 mg PO HS hydrocortisone 1 % cream 1 applic topical DAILYP PRN (Reason: Skin Condition) omeprazole 20 mg capsule,delayed release(DR/EC) 20 mg PO DAILY levothyroxine 200 mcg tablet 200 mcg PO DAILY pravastatin 20 mg tablet 20 mg PO TUTH carbidopa-levodopa 25-100 mg tablet 1 tab PO TID pramipexole 1.5 mg tablet 1.5 mg PO TID acetaminophen 325 mg Tablet 325 mg PO QID polyethylene glycol 3350 [Miralax] 17 gram Powder In Packet 17 g PO DAILY polysaccharide iron complex [Ferrex 150] 150 mg iron Capsule 150 mg PO DAILY aspirin 81 mg Tablet,Delayed Release (Dr/Ec) 81 mg PO DAILY cholecalciferol (vitamin D3) 25 mcg (1,000 unit) Capsule 25 mcg PO DAILY Multi-Day with Iron 18-400 mg-mcg Tablet 1 tab PO DAILY levothyroxine 25 mcg Tablet 25 mcg PO DAILY calcium carbonate-vitamin D3 [Oyster Shell Calcium-Vit D3] 250 mg-3.125 mcg (125 unit) Tablet 1 tab PO BID omega 1-rpv-[id number]-fish oil 200-300-1,000 mg Capsule 2 cap PO DAILY Problem Reconciliation Problems Reviewed?: Yes Patient Discharge Instructions ACTIVITY: Bed rest DIET: continue same diet Patient Instructions: Septic Shock, DI for Heart Failure, DI for Hyperkalemia, DI for Respiratory Failure, DI for Acute Kidney Injury, Catheter-Associated Urinary Tract Infection Providers Primary Care Provider: Provider,Referral Admit Provider: Pipo Corey Attending Provider: Pipo Corey
--- NOTE | 2024-02-05 13:24 | PC.NURSE ---
REPORT CALLED TO [facility] AND [facility] CONTACTED AT THIS TIME [facility] PT [facility]SPORT.
[2024-02-05] MEDS: LORazepam 2MG/ML VIAL 0.5 MG IV (13:34)
== END 2024-02-05 14:37 | disposition hospice, inpatient (51) | DRG 871 ==
LOC: ER 05:46 → 2ND 07:05
PROVIDERS: Emergency Medicine; Internal Medicine Pulmonary Disease; Nurse Practitioner Family; Admitting Provider Internal Medicine Adolescent Medicine; Emergency Provider Emergency Medicine; Visit Provider Internal Medicine Adolescent Medicine
DX: A41.9 Sepsis, unspecified organism (principal); J96.91 Respiratory failure, unspecified with hypoxia; R65.21 Severe sepsis with septic shock; I13.0 Hypertensive heart and chronic kidney disease with heart failure and stage 1 through stage 4 chronic kidney disease, or unspecified chronic kidney disease; N17.9 Acute kidney failure, unspecified; E66.9 Obesity, unspecified; Z68.39 Body mass index [BMI] 39.0-39.9, adult; R68.0 Hypothermia, not associated with low environmental temperature; G20.A1 Parkinson's disease without dyskinesia, without mention of fluctuations; F03.90 Unspecified dementia, unspecified severity, without behavioral disturbance, psychotic disturbance, mood disturbance, and anxiety; Z87.891 Personal history of nicotine dependence; E03.9 Hypothyroidism, unspecified; F32.A Depression, unspecified; F41.9 Anxiety disorder, unspecified; N18.9 Chronic kidney disease, unspecified
CPT/HCPCS: 36415; 51702; 70450; 71045; 74018; 80048; 80053; 80307; 80329; 81001; 82009; 82140; 82533; 82550; 82803; 82962; 83605; 83735; 83880; 84436; 84443; 84484; 85014; 85018; 85025; 87040; 87636; 93005; 93306; 93970; 94640; 94660; 94761; 99291; J2543; J3370